=== PATIENT | female | born 2000 | race Caucasian/White ===

== ENCOUNTER 2024-09-17 15:50 | Emergency (ER) | payer MEDICAID, SELFPAY ==
[2024-09-17 16:23] VITALS: BP 130/70; PULSE 100; RESP 18; TEMP 37.1; O2SAT 99; BMI 33.3
--- NOTE | 2024-09-17 16:24 | XR_ITS ---
Examination: Complete OB ultrasound greater than 14 weeks Date and time of exam: September 17, 2024 1638 hours INDICATIONS: Abdominal cramping today Findings: Viable intrauterine single fetus with single amniotic sac presentation breech Cardiac motion 133 BPM Placenta anterior grade 1 Umbilical cord insertion seen Amniotic fluid appears adequate Cervix 4.7 cm Right ovary 5.5 cm arterial flow Left ovary 3.2 cm arterial flow 4.5 cm right ovarian cyst. Composite estimated gestational age based on BPD, head circumference, abdominal circumference, femur length is 18 weeks 3 days Estimated weight 231.5 g. Survey of intracranial anatomy, spinal anatomy, abdominal anatomy, four-chamber heart performed with no abnormalities identified. Impression: Viable intrauterine gestation in breech presentation.
--- NOTE | 2024-09-17 16:41 | PD.EDRME ---
Rapid Medical Screening Exam RME Arrival date/time: 09/17/24 15:50 24-year-old female with no known medical history presents to the emergency room with a chief complaint of abdominal cramping. Patient states she is currently 20 weeks and due to her insurance has had difficulty establishing [employer]IE[employer]PR[employer] ARCHIT[employer] care. Patient denies any vaginal bleeding or dysuria. I have greeted and performed a focused initial assessment of this patient. A comprehensive ED assessment and evaluation of the patient, analysis of all test results, and completion of the medical decision making process will be conducted by additional ED providers. Chief Complaint: OB/Uterine Contractions Time Seen by Provider: 09/17/24 16:16 Vital signs: Vital Signs Temperature 98.7 F 09/17/24 16:23 Pulse Rate 100 09/17/24 16:23 Respiratory Rate 18 09/17/24 16:23 Blood Pressure 130/70 09/17/24 16:23 Pulse Oximetry (%) 99 09/17/24 16:23 Oxygen Delivery Method Room Air 09/17/24 16:23 Vital signs reviewed by provider: Yes
[2024-09-17 17:36] LABS: Collection Type, Urine Clean Catch; RBC,Urine 0 /hpf (0-3)
[2024-09-17 17:38] LABS: Basophils % (Auto) 0 % (0-2.5); Eosinophils % (Auto) 1 % (0-10); Hematocrit 35.3 % (36.0-46.0); Hemoglobin 12.2 g/dL (12.0-16.0); Immature Granulocytes % (Auto) 0 % (0-0); Immature Granulocytes Auto 0.03 Thou/mm3 (0.00-0.00); Lymphocytes # (Auto) 1.9 Thou/mm3 (1.0-4.8); Lymphocytes % (Auto) 26 % (10-50); Mean Corpuscular HGB Conc 34.6 g/dl (31.0-37.0); Mean Corpuscular Hemoglobin 28.8 pg (25.0-35.0); Mean Corpuscular Volume 83 fL (80-100); Monocytes # (Auto) 0.5 Thou/mm3 (0.0-0.8); Monocytes % (Auto) 7 % (0-12); Neutrophils % (Auto) 67 % (37-80); Nucleated Red Blood Cell % 0 /100 WBC (0); Platelet Count 267 Thou/mm3 (140-440); Red Blood Count 4.24 Miln/mm3 (4.00-5.20); White Blood Count 7.6 Thou/mm3 (3.6-11.0)
[2024-09-17 18:06] LABS: Alanine Aminotransferase 19 U/L (10-49); Albumin, Serum 4.4 gm/dL (3.5-5.0); Albumin/Globulin Ratio 1.6 (1.2-2.2); Alkaline Phosphatase 61 U/L (46-116); Anion Gap 9 (7-16); Aspartate Amino Transferase 19 U/L (0-34); BUN/Creatinine Ratio 8 Ratio (12-20); Bilirubin,Total 0.3 mg/dL (0.3-1.2); Blood Urea Nitrogen 5 mg/dL (9-23); Calcium 9.1 mg/dL (8.3-10.6); Calcium (Corrected) 9.1 mg/dL (8.5-10.1); Carbon Dioxide 22.2 mMol/L (20.0-31.0); Chloride 108 mMol/L (98-107); Creatinine (Component) 0.6 mg/dL (0.6-1.3); Estimated Creatinine Clearance 148.3 mL/min (>60); Globulin 2.7 gm/dL (2.3-3.5); Glucose 81 mg/dL (74-106); Osmolality,Calculated 273 (275-295); Potassium 3.5 mMol/L (3.4-5.1); Sodium 139 mMol/L (136-145); Total Protein 7.1 gm/dL (5.7-8.2); eGFR > 60 See Note
[2024-09-17 18:16] LABS: Bacteria,Urine 2+; Bilirubin,Urine Negative (Negative); Blood,Urine Negative (Negative); Clarity,Urine Turbid (Clear/Hazy); Color,Urine Lt-Yellow (Lt Yel-Yel); Glucose, Urine Negative (Negative); Ketones,Urine Negative (Negative); Leukocyte Esterase,Urine Positive (Negative); Nitrite,Urine Negative (Negative); Protein,Urine Negative (Neg - Trace); Specific Gravity,Urine 1.012 (1.001-1.035); Squamous Epithelial Cell,Urine 6 /hpf (0-5); Urobilinogen,Urine Negative mg/dL (0.0-1.0); WBC,Urine 14 /hpf (0-5)
[2024-09-17 18:44] LABS: Beta HCG,Quantitative 75096 mIU/mL (<5.0)
--- NOTE | 2024-09-17 19:47 | EDNOTE_ITS ---
ED OB Contraction Preg RMI/HPI General Chief complaint: OB/Uterine Contractions Stated complaint: NEEDS ULTRASOUND TO SEE WHAT'S GOING ON ; 20 WKS Time Seen by Provider: 09/17/24 16:16 Arrival date/time: 09/17/24 15:50 24-year-old female with no known medical history presents to the emergency room with a chief complaint of abdominal cramping. Patient states she is currently 20 weeks and due to her insurance has had difficulty establishing [employer]CR[employer] care. Patient denies any vaginal bleeding or dysuria. Limitations: no limitations RME / HPI RME / HPI Narrative: 09/17/24 15:50 24-year-old female with no known medical history presents to the emergency room with a chief complaint of abdominal cramping. Patient states she is currently 20 weeks and due to her insurance has had difficulty establishing [employer] TR[employer]CR[employer] care. Patient denies any vaginal bleeding or dysuria. I have greeted and performed a focused initial assessment of this patient. A comprehensive ED assessment and evaluation of the patient, analysis of all test results, and completion of the medical decision making process will be conducted by additional ED providers. Related Data Previous Rx's ?Medication ?Instructions ?Recorded cephalexin 500 mg capsule 500 mg PO BID 5 days #10 cap s 09/17/24 Allergies Allergy/AdvReac Type Severity Reaction Status Date / Time Penicillins Allergy Vomiting Verified 09/17/24 15:53 Review of Systems Review of Systems Systems Reviewed: All systems reviewed, normal except as documented Constitutional Constitutional: Reports system reviewed and no additional complaints, except as documented, Denies fever(s) and Denies headache(s) Eyes Eyes: Reports system reviewed and no additional complaints, except as documented and Denies blurry vision ENT Ears, Nose, Mouth, and Throat: Reports system reviewed and no additional complaints, except as documented, Denies headache(s), Denies nasal congestion and Denies nasal discharge Cardiovascular Cardiovascular: Reports system reviewed and no additional complaints, except as documented, Denies chest pain and Denies dyspnea Respiratory Respiratory: Reports system reviewed and no additional complaints, except as documented, Denies chest congestion, Denies cough and Denies dyspnea Gastrointestinal Gastrointestinal: Reports system reviewed and no additional complaints, except as documented and Denies abdominal pain Genitourinary Genitourinary: Reports system reviewed and no additional complaints, except as documented and Reports pelvic pain Integumentary/Breasts Skin/Breast: Reports system reviewed and no additional complaints, except as documented and Denies rash Neurologic Neurologic: Reports system reviewed and no additional complaints, except as documented, Reports as per HPI and Denies headache(s) Past Medical History Social History SMOKING STATUS: Never smoker ED Exam General Limitations: Present no limitations General appearance: Present alert and in no apparent distress Head Head exam: Present atraumatic Eye Eye exam: Present normal appearance, PERRL and EOMI ENT ENT exam: Present normal exam, normal oropharynx and mucous membranes moist Neck Neck exam: Present normal inspection, full ROM and trachea midline Chest Chest inspection: Present normal inspection and symmetric chest wall rise Respiratory Respiratory exam: Present normal lung sounds bilaterally Cardiovascular Cardiovascular exam: Present regular rate, normal rhythm and normal heart sounds Abdominal Exam Abdominal exam: Present soft and normal bowel sounds Extremities Exam Extremities exam: Present normal inspection and full ROM Back Exam Back exam: Present normal inspection and full ROM Neurological Exam Neurological exam: Present alert, oriented X3 and CN II-XII intact Psychiatric Psychiatric exam: Present normal affect and normal mood Skin Skin exam: Present warm, dry, intact and normal color Course Quality Measures none Orders Category Date Time Status US OB >= 14 weeks Fetus Stat Exams 09/17/24 16:24 Completed ABO/RH Type Stat Lab 09/17/24 17:14 Completed Beta HCG,Quantitative Stat Lab 09/17/24 17:14 Completed CBC Stat Lab 09/17/24 17:14 Completed CMP [Comprehensive Metabolic Panel] Stat Lab 09/17/24 17:14 Completed UA [Urinalysis] Stat Lab 09/17/24 17:27 Completed Vital Signs Vital signs: Vital Signs Temperature 98.7 F 09/17/24 16:23 Pulse Rate 100 09/17/24 16:23 Respiratory Rate 18 09/17/24 16:23 Blood Pressure 130/70 09/17/24 16:23 Pulse Oximetry (%) 99 09/17/24 16:23 Oxygen Delivery Method Room Air 09/17/24 16:23 O2 saturation 99% room air wnl OB/Uterine Contractions MDM Narrative MDM Narrative:: 24-year-old female with no known medical history presents to the emergency room with a chief complaint of abdominal cramping. Patient states she is currently 20 weeks and due to her insurance has had difficulty establishing [employer] care. Patient denies any vaginal bleeding or dysuria. On exam patient with a provisional appear toxic no acute distress Reviewed the patient's lab work and imaging no acute emergent findings noted Consultation: I spoke with Dr. Soler and got her an appointment to follow-up with him on Saturday Patient reports no bleeding no pain. Patient reports that she has been stressed that she is unable to establish care with [employer]CT[employer] TRANSCRIBER as she suffers from anxiety Patient data External records reviewed:: [facility] previous records Clinical information provided by:: patient Social determinants that could affect healthcare access:: none Patient has the following chronic illnesses:: Anxiety How is presenting disease/condition affected by chronic disease/condition?: exacerbated by Evaluation data The following diagnostics were reviewed and interpreted by me:: lab results and radiology exam(s) Lab and/or radiology exams considered but not ordered:: Labs radiology obtained Interpretation Summary: Reviewed by me Medications / Prescriptions Medications or Prescriptions considered but not ordered:: Given no Medication administrations:: Given no meds Consultations Consultation(s) initiated? (list below): Yes Consultation #1 (Physician, Specialty, Details): Dr. Soler Diagnosis OB Contractions Differential Diagnosis: other (missed , threatened ) Most likely diagnosis given after review of the tests above:: Normal , anxiety, mild UTI Admission Indicated Admission indicated?: not indicated Explain why admission is indicated or not indicated:: No criteria Admission Request Was there a request for admission?: No Disposition Plan Disposition Plan: Discharge Discharge Attestation Discharge Attestation: The patient and all family members were given an opportunity to ask questions and understood the discharge instructions. Discharge instructions specifically effects, indications for sooner follow up or return to the emergency department, and the expected course of current diagnosis. Patient condition: Stable Discharge Plan Plan Patient Disposition: HOME (Self Care) Discharge Disposition comment: Stable Prescriptions/Referrals Prescriptions/Med Rec: New cephalexin 500 mg capsule 500 mg PO BID 5 Days Qty: 10 0RF Referrals: Dez Soler MD [Physician] - 09/21/24 9:00 am No Primary/Family,Physician [Primary Care Provider] - In 1 week Problem List Clinical Impression: Early stage of , UTI (urinary tract infection) Patient/Caregiver Discharge Instructions Education Materials: Kick Counts Additional Instructions: Please follow-up 9 AM on Saturday morning with Dr. Soler inform the front office staff that you were seen in the ER and he states he will see you as a new patient Print Language: Uzbek Stand Alone Forms: Asiya Award Info., Patient Portal Info Letter PA/POWER SAW MECHANIC Supervising Physician PA/POWER SAW MECHANIC Supervising Physician: dr izaguirre
== END 2024-09-17 20:14 | disposition home or self-care (01) ==
PROVIDERS: Nurse Practitioner Family; Emergency Provider Family Medicine
DX: O23.42 Unspecified infection of urinary tract in pregnancy, second trimester (principal); N39.0 Urinary tract infection, site not specified; O26.892 Other specified pregnancy related conditions, second trimester; R10.2 Pelvic and perineal pain; Z3A.18 18 weeks gestation of pregnancy
CPT/HCPCS: 36415; 76805; 80053; 81001; 84702; 85025; 86900; 86901; 99284

== ENCOUNTER 2024-10-13 13:18 | Outpatient (AMB) | payer MEDICAID, SELFPAY ==
[2024-10-13 13:44] VITALS: BP 135/91; PULSE 120; RESP 22; TEMP 36.9; O2SAT 99; BMI 38.4
--- NOTE | 2024-10-13 13:44 | OBCLNT_ITS ---
Vital Signs 10/13/24 13:44 Height 1.6 m Height Method Stated Weight 98.43 kg Weight Measurement Method Standing Scale BMI 38.4 BP 135/91 H Blood Pressure Source Automatic Cuff Blood Pressure Location Right Upper Arm Position Sitting Respiration 22 H Pulse 120 H Pulse Source Monitor Temp 98.5 F Temp Source Oral Pulse Oximetry (%) 99 Oxygen Delivery Method Room Air Allergies/Home Meds Allergies & Medications Allergies Penicillins Allergy (Verified 10/13/24 13:46) Vomiting Medication Reconciliation No Known Home Medications 10/13/24 [History Confirmed 10/13/24] Intake Visit Data Collection New Patient or Established: Established Patient (seen at [facility] within 3 years) Reason for Visit:: INITIAL CARE Seen by Clinical Staff ONLY (RN/MA): No Fine Grader Required: No Do You Feel Safe at Home: Yes Authorities Contacted: N/A PCP or OBGYN visit in last 3 months: Yes Hx Now: Yes Are you currently on any form of Control: No Pain Present Currently: No Pain Scale Used: Yen-De La Torre/Numerical Pain scale:: 0 Smoking Status Smoking Status: Never smoker Questionnaires Covid-19 Vaccine Questionnaire Has patient been vacinated for Covid-19 Have you been vacinated for Covid-19: Yes PHQ-9 PHQ-2 Over the last 2 weeks, how often have you been bothered by any of the following problems? 1. Little interest or pleasure in doing things: not at all 2. Feeling down, depressed, or hopeless: not at all Total score: 0 PHQ-9 3. Trouble falling or staying asleep, or sleeping too much: Not at all 4. Feeling tired or having little energy: Not at all 5. Poor appetite or overeating: Not at all 6. Feeling bad about yourself - or that you are a failure or have let yourself or your family down: Not at all 7. Trouble concentrating on things, such as reading the newspaper or watching t elevision: Not at all 8. Moving or speaking so slowly that other people could have noticed? - Or the opposite - being so fidgety or restless that you have been moving around a lot more than usual: not at all 9. Thoughts that you would be better off or of hurting yourself in some way: Not at all Total score: 0 Source: Developed by Drs. Devin Jonas, Kathryn Hatfield, Richard Rivera and colleagues, with an educational timoteo from [employer]. Depression screen completed yes Social History Living Situation History Marital Status: Lives With: Family Housing: House Tobacco History Smoking Status: Never smoker Second Hand Smoke Exposure: No Alcohol History Alcohol Intake: Never Domestic Abuse History Do You Feel Safe at Home: Yes OB Initial Visit OB Flowsheet OB Flowsheet Initial Weight: Not Recorded Date -?-?-?-?-?-?-?-?-?-?-?-?- EGA Weight BP Alb Glu CTX Pres Fundal ht FHR Mov Dilation Station Effacement Hx Notes Visit Note 10/13/24 -?-?-?-?-?-?-?-?-?-?-?-?- 22w 1d 98.43 kg 135/91 absent unknown 22 145 active 24-year-old 1 para 0 with unknown dates. Patient had an ultrasound on September 14 and the ABHIJIT it stated she was 18 weeks and 3 days. This gave her EDC of February 17, 2025. Patient complains of increased nausea and vomiting that she says is improving. But she is tearful because she is not feeling the baby move and she is worried about that. Denies social habits. And patient denies any surgeries. Patient has a history of anxiety. Reports an alert allergy to penicillin. Patient denies leaking fluid or bleeding. OB panel and NIPT and carrier screens ordered today. I will schedule ultrasound with maternal- medicine for anatomy scan. I reassured patient and discussed dates. Discussed comfort measures for nausea and vomiting. Patient is to continue to take her vitamins. And we discussed signs symptoms of labor. And patient will return in 3 weeks for OB check Menstrual History Menstrual reliability: definite Flow: normal Menstrual regularity: regular Monthly: Yes Age at menarche: 10 On control pills at conception: No Associated symptoms (LMP): Reports nausea, vomiting, fatigue, breast tenderness and bloating OB History : 1 # of Living Children: 0 Infection History & Risk Evaluation History of STDs: none Genetic Screening & History Genetic Screening/Teratology Counseling - Includes patient, baby's father, or anyone in either family with: 1. Patient's age 35 years or older as of estimated date of delivery: No 2. Thalassemia (Japanese, Martiniquais, Mediterranean, or Background); MCV less than 80: No 3. Neural Tube Defect (Meningomyelocele, Spina Bifida, or Anencephaly): No 4. Congenital Heart Defect: No 5. Down Syndrome: No 6. Manuel-Sachs (Ashkenazi Congregational, Cajun, Australian Citizen Of The [place]): No 7. Dinh Disease (Ashkenazi Congregational): No 8. Familial Dysautonomia (Ashkenazi Congregational): No 9. Sickle Cell Disease or Trait (): No 10. Hemophilia or other blood disorders: No 11. Muscular Dystrophy: No 12. Cystic Fibrosis: No 13. Nome's Chorea: No 14. Mental Retardation/Autism: No 15. Other inherited genetic or chromosomal disorder: No 16. Maternal Metabolic Disorder (EG,TYPE 1 Diabetes, PKU): No 17. Patient or baby's father had a child with defects not listed above: No 18. Recurrent loss or a stillbirth: No 19. Medications (including supplements, vitamins, herbs or otc drugs)/illicit/recreational drugs/alcohol since last menstrual period: No 20. Any other: No Infection History 1. Live with someone with TB or exposed to TB: No 2. Rash or viral illness since last menstrual period: No 3. Hepatitis B,C: No Other (see comments) Source: [employer] Review of Systems Review of Systems Systems Reviewed: All systems reviewed, normal except as documented Constitutional Constitutional: Reports fatigue Gastrointestinal Gastrointestinal: Reports bloating, Reports nausea and Reports vomiting Endocrine Endocrine: Reports fatigue Exam General Limitations: no limitations General Appearance: alert, in no apparent distress, comfortable, cooperative, healthy appearing, well developed and well groomed Head Head exam: atraumatic, normocephalic and normal inspection Chest Chest inspection: Present normal inspection and symmetric chest wall rise Resp Respiratory exam: Present normal lung sounds bilaterally Card Cardiovascular exam: Present regular rate, normal rhythm and normal heart sounds Abdominal Abdominal exam: Present soft and normal bowel sounds Psych Psychiatric exam: Present normal affect and normal mood Office Procedures OB Clinic LOC & Office Proc's Nursing/Assessment Patient Status: Established Patient OB Clinic Nursing Assessment: Medication Reconciliation, Update PMH in EMR and Vital Signs OB Clinic Coordination of Care: Complex Care and Chronic Disease 1-5, Consent,records obtained, informed consent, Education Simp Pt/Fam, Lab and Imaging orders, Results/Orders obtained and Staff clarify orders Special Needs: Heart tones Established Patient Charge Established Patient Point Assignment: 135 Established Patient Point Charge: EP Level 4 (120-155) Assessment & Plan Diagnosis / Problem List (1) Encounter for supervision of other normal , second trimester: Status: Acute Plan NIPT and carrier screens today. Schedule ultrasound appointment with maternal- medicine. I discussed dates and ultrasound with patient. I discussed normal parameters for the baby that is 22 weeks. Discussed diet and weight gain. Patient to continue vitamins comfort measures for nausea and return in 4 weeks OB Additional Plan Follow Up: 4 Weeks (obc)
== END 2024-10-13 14:31 | disposition home or self-care (01) ==
LOC: HODSOBC 13:18
PROVIDERS: Supervising Provider Advanced Practice Midwife; Visit Provider Advanced Practice Midwife
DX: Z34.02 Encounter for supervision of normal first pregnancy, second trimester (principal); Z3A.22 22 weeks gestation of pregnancy; Z88.0 Allergy status to penicillin
CPT/HCPCS: 99214; G0463

== ENCOUNTER 2024-11-17 13:13 | Outpatient (AMB) | payer MEDICAID, SELFPAY ==
[2024-11-17 13:20] VITALS: BP 139/96; PULSE 105; RESP 17; TEMP 36.7; O2SAT 98; BMI 39.3
--- NOTE | 2024-11-17 13:20 | OBCLNT_ITS ---
Vital Signs 11/17/24 13:20 Height 1.6 m Height Method Measured Weight 100.698 kg Weight Measurement Method Standing Scale BMI 39.3 BP 139/96 H Blood Pressure Source Automatic Cuff Blood Pressure Location Right Upper Arm Position Sitting Respiration 17 Pulse 105 H Pulse Source Monitor Temp 98.0 F Temp Source Temporal Artery Scan Pulse Oximetry (%) 98 Oxygen Delivery Method Room Air Allergies/Home Meds Allergies & Medications Allergies Penicillins Allergy (Verified 11/17/24 13:21) Vomiting Medication Reconciliation No Known Home Medications 10/13/24 [History Confirmed 11/17/24] Intake Visit Data Collection New Patient or Established: Established Patient (seen at [facility] within 3 years) Reason for Visit:: OBC Consent obtained for Telemed Visit: No Seen by Clinical Staff ONLY (RN/MA): No Architecture Faculty Member Required: No Do You Feel Safe at Home: Yes Authorities Contacted: N/A PCP or OBGYN visit in last 3 months: Yes Date of Last PCP or OBGYN visit: 10/13/24 Hx Now: Yes Are you currently on any form of Control: No Pain Present Currently: No Pain Scale Used: Yen-De La Torre/Numerical Pain scale:: 0 Smoking Status Smoking Status: Never smoker Questionnaires Covid-19 Vaccine Questionnaire Has patient been vacinated for Covid-19 Have you been vacinated for Covid-19: No PHQ-9 PHQ-2 Over the last 2 weeks, how often have you been bothered by any of the following problems? 1. Little interest or pleasure in doing things: not at all PHQ-9 8. Moving or speaking so slowly that other people could have noticed? - Or the opposite - being so fidgety or restless that you have been moving around a lot more than usual: not at all Source: Developed by Drs. Devin Jonas, Kathryn Hatfield, Richard Rivera and colleagues, with an educational timoteo from [employer]. Social History Living Situation History Lives With: Family Housing: House Tobacco History Smoking Status: Never smoker Second Hand Smoke Exposure: No Alcohol History Alcohol Intake: Never Domestic Abuse History Do You Feel Safe at Home: Yes Care OB Visit Log OB Flowsheet Initial Weight: Not Recorded Date -?-?-?-?-?-?-?-?-?-?-?-?- EGA Weight BP Alb Glu CTX Pres Fundal ht FHR Mov Dilation Station Effacement Hx Notes Visit Note 10/13/24 -?-?-?-?-?-?-?-?-?-?-?-?- 22w 1d 98.43 kg 135/91 absent unknown 22 145 active 24-year-old 1 para 0 with unknown dates. Patient had an ultrasound on September 14 and the ABHIJIT it stated she was 18 weeks and 3 days. This gave her EDC of February 17, 2025. Patient complains of increased nausea and vomiting that she says is improving. But she is tearful because she is not feeling the baby move and she is worried about that. Denies social habits. And patient denies any surgeries. Patient has a history of anxiety. Reports an alert allergy to penicillin. Patient denies leaking fluid or bleeding. OB panel and NIPT and carrier screens ordered today. I will schedule ultrasound with maternal- medicine for anatomy scan. I reassured patient and discussed dates. Discussed comfort measures for nausea and vomiting. Patient is to continue to take her vitamins. And we discussed signs symptoms of labor. And patient will return in 3 weeks for OB check 11/17/24 -?-?-?-?-?-?-?-?-?-?-?-?- 27w 1d 100.698 kg 139/96 absent unknown 26 145 active No oB complaints, no leaking or bleeding, labs were not done. MFM pending redraw OB panel, nipt/carrier and 3rd tri lab, RHOGAM NV if needed, MFM scheduled, discuss ptl precaution, hydrate. continue PNV, PTL precaution. rtc 4 week ABHIJIT Calculator Estimated Delivery Date Method Current WG Current Estimate 02/15/25 Ultrasound #1 27w 1d Other Estimates 02/04/25 LMP (Uncertain) 28w 5d Notes Visit Date: 10/13/24 Last Updated by: Cherie Conti CNM 24 yo . sono: 09/17/24: 18w3. EDC 02/17/25 Office Procedures OB Clinic LOC & Office Proc's Nursing/Assessment Patient Status: Established Patient OB Clinic Nursing Assessment: Medication Reconciliation, Update PMH in EMR and Vital Signs OB Clinic Coordination of Care: Complex Care and Chronic Disease 1-5, Consent,records obtained, informed consent, Education Simp Pt/Fam and 4+ Authorizations needed Special Needs: Heart tones Miscellaneous Interventions: Blood/Urine Collection Established Patient Charge Established Patient Point Assignment: 160 Established Patient Point Charge: EP Level 5 (160-above) Assessment & Plan Diagnosis / Problem List (1) High risk case management patient in second trimester: Status: Acute Plan redraw OB panel/1 hr gtt, A1c, NIPT and carrier screen, f/u with MFM for sono appointment. discuss PTL precaution. Rhogam NV if RH-. rtc 3 week Additional Plan Follow Up: 3 Weeks (obc)
== END 2024-11-17 14:03 | disposition home or self-care (01) ==
LOC: HODSOBC 13:13
PROVIDERS: Supervising Provider Advanced Practice Midwife; Visit Provider Advanced Practice Midwife
DX: Z34.02 Encounter for supervision of normal first pregnancy, second trimester (principal); Z3A.27 27 weeks gestation of pregnancy; Z88.0 Allergy status to penicillin
CPT/HCPCS: 99215; G0463

== ENCOUNTER 2024-12-16 15:07 | Outpatient (AMB) | payer MEDICAID, SELFPAY ==
--- NOTE | 2024-12-16 15:12 | AMB.OBVISIT ---
Allergies/Home Meds Allergies & Medications Allergies Penicillins Allergy (Verified 12/16/24 15:12) Vomiting Medication Reconciliation azithromycin 500 mg tablet 1,000 mg (2 x 500 mg) PO QDAY STI 1 day #2 tabs 12/16/24 [Rx] erythromycin 500 mg tablet 500 mg PO QID STI 7 days #28 tabs 12/16/24 [Rx] ferrous sulfate 325 mg (65 mg iron) tablet 325 mg PO BID #60 tabs 12/16/24 [Rx] Intake Visit Data Collection New Patient or Established: Established Patient (seen at [facility] within 3 years) Reason for Visit:: OBC/ LAB RESULTS TELE MED Seen by Clinical Staff ONLY (RN/MA): No Lab Tech Required: No Do You Feel Safe at Home: Yes Authorities Contacted: N/A PCP or OBGYN visit in last 3 months: Yes Date of Last PCP or OBGYN visit: 10/13/24 Hx Now: Yes Are you currently on any form of Control: No Pain Present Currently: No Pain Scale Used: Yen-De La Torre/Numerical Pain scale:: 0 Smoking Status Smoking Status: Never smoker For Telemed visit only Telemed Video/Phone Visit: Yes Verbal consent obtained for Telemed visit?: Yes Verbal Consent witness name: EDUAR AVENDANO Telemed Video/Phone visit w/Clinical Staff: 11-20 min Questionnaires Covid-19 Vaccine Questionnaire Has patient been vacinated for Covid-19 Have you been vacinated for Covid-19: No PHQ-9 PHQ-2 Over the last 2 weeks, how often have you been bothered by any of the following problems? 1. Little interest or pleasure in doing things: not at all 2. Feeling down, depressed, or hopeless: not at all Total score: 0 PHQ-9 3. Trouble falling or staying asleep, or sleeping too much: Not at all 4. Feeling tired or having little energy: Not at all 5. Poor appetite or overeating: Not at all 6. Feeling bad about yourself - or that you are a failure or have let yourself or your family down: Not at all 7. Trouble concentrating on things, such as reading the newspaper or watching television: Not at all 8. Moving or speaking so slowly that other people could have noticed? - Or the opposite - being so fidgety or restless that you have been moving around a lot more than usual: not at all 9. Thoughts that you would be better off or of hurting yourself in some way: Not at all Total score: 0 If you checked off any problems, how difficult have these problems made it for you to do your work, take care of things at home, or get along with other people?: not difficult at all Source: Developed by Drs. Devin Jonas, Kathryn Hatfield, Richard Rivera and colleagues, with an educational timoteo from [employer]. Depression screen completed yes Social History Living Situation History Marital Status: Life Partner Lives With: Family Housing: House Tobacco History Smoking Status: Never smoker Second Hand Smoke Exposure: No Alcohol History Alcohol Intake: Never Domestic Abuse History Do You Feel Safe at Home: Yes Care OB Visit Log OB Flowsheet Initial Weight: Not Recorded Date <del>?</del> EGA Weight BP Alb Glu CTX Pres Fundal ht FHR Mov Dilation Station Effacement Hx Notes Visit Note 10/13/24 <del>?</del> 22w 1d 98.43 kg 135/91 absent unknown 22 145 active 24-year-old 1 para 0 with unknown dates. Patient had an ultrasound on September 14 and the ABHIJIT it stated she was 18 weeks and 3 days. This gave her EDC of February 17, 2025. Patient complains of increased nausea and vomiting that she says is improving. But she is tearful because she is not feeling the baby move and she is worried about that. Denies social habits. And patient denies any surgeries. Patient has a history of anxiety. Reports an alert allergy to penicillin. Patient denies leaking fluid or bleeding. OB panel and NIPT and carrier screens ordered today. I will schedule ultrasound with maternal- medicine for anatomy scan. I reassured patient and discussed dates. Discussed comfort measures for nausea and vomiting. Patient is to continue to take her vitamins. And we discussed signs symptoms of labor. And patient will return in 3 weeks for OB check 11/17/24 <del>?</del> 27w 1d 100.698 kg 139/96 absent unknown 26 145 active No oB complaints, no leaking or bleeding, labs were not done. MFM pending redraw OB panel, nipt/carrier and 3rd tri lab, RHOGAM NV if needed, MFM scheduled, discuss ptl precaution, hydrate. continue PNV, PTL precaution. rtc 4 week 12/16/24 <del>?</del> 31w 2d active I called patient to discuss positive chlamydia results. Patient is tearful during appointment. Reports anxiety is elevated. Patient thinks her anxiety is elevated because father the baby is not bringing her to her visit today. Discussed positive chlamydia results with patient. Discussed safe sex practices. And I discussed transmission with. Patient. I gave the partner treatment pack of azithromycin 1 g to be taken today. Patient is allergic to penicillins so I gave her erythromycin 500 mg p.o. 4 times daily x 7 days per CDC guidelines. No sex for at least 3 weeks. And then I advised to use condoms. I discussed the patient is Rh- and advised patient to come on Saturday for her RhoGAM. And she was given her NIPT and gender results. Discussed labor precautions and increase fluids. Discussed positive chlamydia results with patient. Discussed safe sex practices. And I discussed transmission with. Patient. I gave the partner treatment pack of azithromycin 1 g to be taken today. Patient is allergic to penicillins so I gave her erythromycin 500 mg p.o. 4 times daily x 7 days per CDC guidelines. No sex for at least 3 weeks. And then I advised to use condoms. I discussed the patient is Rh- and advised patient to come on Saturday for her RhoGAM. And she was given her NIPT and gender results. Discussed labor precautions and increase fluids.. called patient to come draw 3 hr gtt ABHIJIT Calculator Estimated Delivery Date Method Current WG Current Estimate 02/15/25 Ultrasound #1 31w 2d Other Estimates 02/04/25 LMP (Uncertain) 32w 6d Notes Visit Date: 12/16/24 Last Updated by: Cherie Conti CNM 24yo . O-,ABS-. Patient Needs Rhogam at 28 week. rub NI, rpr;;nr, GC-/CT+. HBSAG-,HIV-,HC- Visit Date: 10/13/24 Last Updated by: Cherie Conti CNM 24 yo . sono: 09/17/24: 18w3. EDC 02/17/25 Office Procedures OB Clinic LOC & Office Proc's Nursing/Assessment Patient Status: Established Patient OB Clinic Nursing Assessment: Medication Reconciliation, Update PMH in EMR and Vital Signs OB Clinic Coordination of Care: Complex Care and Chronic Disease 1-5, Consent,records obtained, informed consent, Education Simp Pt/Fam, Results/Orders obtained and Staff clarify orders Established Patient Charge Established Patient Point Assignment: 90 Telehealth If patient is seen using Teleconference methods, complete New/Est section, but DO NOT kassy points only kassy the correct Telemed visit type Telemed Phone/Video with patient at home & Dr,PA,WOOD LATHE OPERATOR: Yes Assessment & Plan Diagnosis / Problem List (1) Encounter for supervision of high risk in third trimester, antepartum: Status: Acute (2) Chlamydia contact: Status: Acute Plan Called patient to do virtual appointment for lab results. Discussed positive chlamydia with patient. I ordered a partner pack azithromycin 1 g for patient's partner. And the patient is allergic to penicillin so I ordered erythromycin 500 mg p.o. 4 times daily x 7 days per CDC guidelines. I discussed chlamydial transmission. I advised patient to not have sex until her next appointment. And then after that condoms for least 2 weeks. Discussed safe sex with patient as well I also had patient to come in in 2 days for RhoGAM because she is Rh-. Discussed labor precautions with patient. Increase fluids. And return in 2 weeks for OB check. patient will P/U lab slip for 3 hr gtt, Iron bid Additional Plan Follow Up: 2 Weeks (obc, MARIAN 4 week)
== END 2024-12-16 15:34 | disposition home or self-care (01) ==
LOC: HODSOBC 15:07
PROVIDERS: PCP Advanced Practice Midwife; Referring Provider Advanced Practice Midwife; Supervising Provider Advanced Practice Midwife; Visit Provider Advanced Practice Midwife
DX: O09.893 Supervision of other high risk pregnancies, third trimester (principal); O98.313 Other infections with a predominantly sexual mode of transmission complicating pregnancy, third trimester; A56.8 Sexually transmitted chlamydial infection of other sites; Z3A.31 31 weeks gestation of pregnancy; Z88.0 Allergy status to penicillin
CPT/HCPCS: 99212; G0463

== ENCOUNTER 2024-12-28 13:42 | Outpatient (AMB) | payer MEDICAID, SELFPAY ==
--- NOTE | 2024-12-28 13:47 | AMB.OBVISIT ---
Vital Signs 12/28/24 13:54 Height 1.6 m Height Method Stated Weight 106.254 kg Weight Measurement Method Standing Scale BMI 41.5 BP 136/86 H Blood Pressure Source Automatic Cuff Blood Pressure Location Left Upper Arm Position Sitting Respiration 18 Pulse 91 Pulse Source Monitor Temp 97.4 F Temp Source Oral Pulse Oximetry (%) 98 Oxygen Delivery Method Room Air Allergies/Home Meds Allergies & Medications Allergies Penicillins Allergy (Verified 12/28/24 13:55) Vomiting Medication Reconciliation ferrous sulfate 325 mg (65 mg iron) tablet 325 mg PO BID #60 tabs 12/16/24 [Rx Confirmed 12/28/24] erythromycin 500 mg tablet 500 mg PO TID 7 days #21 tabs 12/28/24 [Rx] Intake Visit Data Collection New Patient or Established: Established Patient (seen at [facility] within 3 years) Reason for Visit:: CARE Seen by Clinical Staff ONLY (RN/MA): No Maintenance Engineer Required: No Do You Feel Safe at Home: Yes Authorities Contacted: N/A PCP or OBGYN visit in last 3 months: Yes Hx Now: Yes Are you currently on any form of Control: No Pain Present Currently: No Pain Scale Used: Yen-De La Torre/Numerical Pain scale:: 0 Smoking Status Smoking Status: Never smoker Questionnaires Covid-19 Vaccine Questionnaire Has patient been vacinated for Covid-19 Have you been vacinated for Covid-19: Yes PHQ-9 PHQ-2 Over the last 2 weeks, how often have you been bothered by any of the following problems? 1. Little interest or pleasure in doing things: not at all 2. Feeling down, depressed, or hopeless: not at all Total score: 0 PHQ-9 3. Trouble falling or staying asleep, or sleeping too much: Not at all 4. Feeling tired or having little energy: Not at all 5. Poor appetite or overeating: Not at all 6. Feeling bad about yourself - or that you are a failure or have let yourself or your family down: Not at all 7. Trouble concentrating on things, such as reading the newspaper or watching television: Not at all 8. Moving or speaking so slowly that other people could have noticed? - Or the opposite - being so fidgety or restless that you have been moving around a lot more than usual: not at all 9. Thoughts that you would be better off or of hurting yourself in some way: Not at all Total score: 0 Source: Developed by Drs. Devin Jonas, Kathryn Hatfield, Richard Rivera and colleagues, with an educational timoteo from [employer]. Depression screen completed yes Social History Living Situation History Lives With: Family Housing: House Tobacco History Smoking Status: Never smoker Second Hand Smoke Exposure: No Alcohol History Alcohol Intake: Never Domestic Abuse History Do You Feel Safe at Home: Yes Care OB Visit Log OB Flowsheet Initial Weight: Not Recorded Date <del>?</del> EGA Weight BP Alb Glu CTX Pres Fundal ht FHR Mov Dilation Station Effacement Hx Notes Visit Note 10/13/24 <del>?</del> 22w 1d 98.43 kg 135/91 absent unknown 22 145 active 24-year-old 1 para 0 with unknown dates. Patient had an ultrasound on September 14 and the ABHIJIT it stated she was 18 weeks and 3 days. This gave her EDC of February 17, 2025. Patient complains of increased nausea and vomiting that she says is improving. But she is tearful because she is not feeling the baby move and she is worried about that. Denies social habits. And patient denies any surgeries. Patient has a history of anxiety. Reports an alert allergy to penicillin. Patient denies leaking fluid or bleeding. OB panel and NIPT and carrier screens ordered today. I will schedule ultrasound with maternal- medicine for anatomy scan. I reassured patient and discussed dates. Discussed comfort measures for nausea and vomiting. Patient is to continue to take her vitamins. And we discussed signs symptoms of labor. And patient will return in 3 weeks for OB check 11/17/24 <del>?</del> 27w 1d 100.698 kg 139/96 absent unknown 26 145 active No oB complaints, no leaking or bleeding, labs were not done. M pending redraw OB panel, nipt/carrier and 3rd tri lab, RHOGAM NV if needed, M scheduled, discuss ptl precaution, hydrate. continue PNV, PTL precaution. rtc 4 week 12/16/24 <del>?</del> 31w 2d active I called patient to discuss positive chlamydia results. Patient is tearful during appointment. Reports anxiety is elevated. Patient thinks her anxiety is elevated because father the baby is not bringing her to her visit today. Discussed positive chlamydia results with patient. Discussed safe sex practices. And I discussed transmission with. Patient. I gave the partner treatment pack of azithromycin 1 g to be taken today. Patient is allergic to penicillins so I gave her erythromycin 500 mg p.o. 4 times daily x 7 days per CDC guidelines. No sex for at least 3 weeks. And then I advised to use condoms. I discussed the patient is Rh- and advised patient to come on Saturday for her RhoGAM. And she was given her NIPT and gender results. Discussed labor precautions and increase fluids. Discussed positive chlamydia results with patient. Discussed safe sex practices. And I discussed transmission with. Patient. I gave the partner treatment pack of azithromycin 1 g to be taken today. Patient is allergic to penicillins so I gave her erythromycin 500 mg p.o. 4 times daily x 7 days per CDC guidelines. No sex for at least 3 weeks. And then I advised to use condoms. I discussed the patient is Rh- and advised patient to come on Saturday for her RhoGAM. And she was given her NIPT and gender results. Discussed labor precautions and increase fluids.. called patient to come draw 3 hr gtt 12/28/24 <del>?</del> 33w 0d 106.254 kg 136/86 absent unknown 32 145 active Patient for OB I. Patient has been noncompliant with care. She has limited access to transportation. Patient is tearful. She states her boyfriend is in a mental hospital. Patient is living with his father. Patient has limited support. Patient reports that her family lives in [place]. Patient did state that she feels safe living where she is at. Patient declined referral to [facility] behavioral health. She states she has no way to get there. She also states that even though she has a history of depression and anxiety she has not taken medication in over 5 years. And she does not get counseling. Patient did not take her erythromycin for positive chlamydia. She states her boyfriend threw them away because the medicine would hurt the baby. Patient does state that she has not had sex since partner was treated. [facility] appointment 12/31 RhoGAM today. I advised patient to get her 3-hour GTT. I also talked with patient about seeing [facility] and [facility]. Patient has not motivated to get help she feels that she is doing well. She also is having transportation problems and difficulty even getting around town. Maternal- medicine appointment on the . Discussed kick count and labor precautions. RhoGAM today. I advised patient to get her 3-hour GTT. I also talked with patient about seeing [facility]. Patient has not motivated to get help she feels that she is doing well. She also is having transportation problems and difficulty even getting around town. Maternal- medicine appointment on the . Discussed kick count and labor precautions. refill eryhthromycin 500 BID x 7, no sex, discuss compliance,. Discussed safe sex. Discussed importance of taking all erythromycin 500 twice daily x 7 days. Test of cure in 4 weeks. RhoGAM today. I advised patient to get her 3-hour GTT. I also talked with patient about seeing behavioral health and [facility]. Patient has not motivated to get help she feels that she is doing well. She also is having transportation problems and difficulty even getting around town. Maternal- medicine appointment on the . Discussed kick count and labor precautions. refill eryhthromycin 500 TID x 7, no sex, discuss compliance,. Discussed safe sex. Discussed importance of taking all erythromycin 500 twice daily x 7 days. Test of cure in 4 weeks. ABHIJIT Calculator Estimated Delivery Date Method Current WG Current Estimate 02/15/25 Ultrasound #1 33w 0d Other Estimates 02/04/25 LMP (Uncertain) 34w 4d Notes Visit Date: 12/28/24 Last Updated by: Cherie Conti CNM 12/28: RHOGAM given today Visit Date: 12/16/24 Last Updated by: Cherie Conti CNM 24yo . O-,ABS-. Patient Needs Rhogam at 28 week. rub NI, rpr;;nr, GC-/CT+. HBSAG-,HIV-,HC- Visit Date: 10/13/24 Last Updated by: Cherie Conti CNM 24 yo . sono: 09/17/24: 18w3. EDC 02/17/25 Office Procedures OB Clinic LOC & Office Proc's Nursing/Assessment Patient Status: Established Patient OB Clinic Nursing Assessment: Medication Reconciliation, Update PMH in EMR and Vital Signs OB Clinic Coordination of Care: Complex Care and Chronic Disease 1-5, Consent,records obtained, informed consent, Education Simp Pt/Fam, 1 Ins Authorization, Lab and Imaging orders, Results/Orders obtained and Staff clarify orders Special Needs: Heart tones Established Patient Charge Established Patient Point Assignment: 150 Established Patient Point Charge: EP Level 4 (120-155) Office Meds Rhophylac 1,500 unit (300 mcg)/2 mL injection syringe Performing Provider: Cherie Conti CNM Performing Location: [facility] Administered by: Rosalva Martinez MA on 12/28/24 15:02 Dose Route Admin Location Dispensed Lot Number Expiration Date [facility] Strategic Planning Analyst 1,500 unit IM LT GLUTEUS 2 mL [id number] 12/02/26 59091-229-71 [facility] Assessment & Plan Diagnosis / Problem List (1) Encounter for supervision of high risk in third trimester, antepartum: Status: Acute (2) High risk case management patient in second trimester: Status: Acute (3) Chlamydia contact: Status: Acute Plan Reordered erythromycin 3 times daily x 7. Discussed compliance and effectiveness of taking the medication with patient. Suggested taking it with little bit of food. We advised patient no sex. Test of cure in 4 weeks. Patient was given a slip to do her 3-hour GTT again. RhoGAM today. Keep appointment with maternal- medicine on the . Discussed labor precautions and kick count. I offered behavioral [facility] appointment with patient she declined due to transportation issues. Increase fluids. Return in 2 weeks OB check Additional Plan Follow Up: 2 Weeks (obc)
[2024-12-28 13:54] VITALS: BP 136/86; PULSE 91; RESP 18; TEMP 36.3; O2SAT 98; BMI 41.5
== END 2024-12-28 14:28 | disposition home or self-care (01) ==
LOC: HODSOBC 13:42
PROVIDERS: PCP Advanced Practice Midwife; Referring Provider Advanced Practice Midwife; Supervising Provider Advanced Practice Midwife; Visit Provider Advanced Practice Midwife
DX: O09.893 Supervision of other high risk pregnancies, third trimester (principal); O26.893 Other specified pregnancy related conditions, third trimester; Z67.41 Type O blood, Rh negative; Z3A.33 33 weeks gestation of pregnancy; O98.313 Other infections with a predominantly sexual mode of transmission complicating pregnancy, third trimester; A56.8 Sexually transmitted chlamydial infection of other sites; O99.891 Other specified diseases and conditions complicating pregnancy; Z59.82 Transportation insecurity; Z88.0 Allergy status to penicillin; T36.3X6A Underdosing of macrolides, initial encounter; Z91.148 Patient's other noncompliance with medication regimen for other reason
CPT/HCPCS: 96372; 99214; J3490; G0463; J2791

== ENCOUNTER 2025-02-05 08:44 | Inpatient (IN) | payer MEDICAID, SELFPAY ==
[2025-02-05] VITALS (199 sets, daily range): BP systolic 128–210; BP diastolic 63–105; PULSE 75–118; RESP 18–99; TEMP 36.8–37.2; O2SAT 92–100; BMI 43.0; BMI 42.5
--- NOTE | 2025-02-05 09:19 | XR_ITS ---
Examination: Complete OB ultrasound greater than 14 weeks Date and time of exam: February 05, 2025, 10:40 AM INDICATIONS: Limited care Findings: Viable intrauterine single fetus with single amniotic sac presentation cephalic spine maternal left Cardiac motion 136 BPM Placenta anterior grade 2 Umbilical cord insertion 3 vessel seen Amniotic fluid index 0 Ovaries obscured by bowel gas. Composite estimated gestational age based on BPD, head circumference, abdominal circumference, femur length is 38 weeks 0 days Estimated weight 3420 g. Survey of intracranial anatomy, spinal anatomy, abdominal anatomy, four-chamber heart performed with no abnormalities identified. Impression: Viable intrauterine gestation cephalic presentation Amniotic fluid index 0 Estimated gestational age 38 weeks 0 days.
[2025-02-05] MEDS: hydrALAZINE INJ 20 MG/ML VIAL 5 MG IVP (09:27)
--- NOTE | 2025-02-05 09:38 | EKG_ITS ---
[facility] Test Date: 2025-02-05 Pat Name: DEEJAY DENNIS Department: Room: 46A Gender: Female Employment Training Specialist: CURTIS : 2000 Requested By: Clarisa Trinh (OB Clinic) Joy Order Number: [id number] Reading MD: Clarisa Trinh (OB Clinic) M Measurements Intervals [place] Rate: 97 P: 31 DE: 155 QRS: 42 QRSD: 81 T: 36 QT: 330 QTc: 420 Interpretive Statements SINUS RHYTHM POSSIBLE ANTERIOR MYOCARDIAL INFARCTION , OF INDETERMINATE AGE No previous ECG available for comparison /store/S0/[id number]/ecg/[id number]
--- NOTE | 2025-02-05 09:39 | XR_ITS ---
Examination: AP chest single view TECHNIQUE: AP upright portable chest single view Date and time: February 05, 2025, 0959 hours INDICATION: Chest pain shortness of breath today. FINDINGS: Cardiac contour appears mildly prominent although this is an AP portable projection No lobar pneumonia or pulmonary edema IMPRESSION: Recommend PA chest follow-up to exclude cardiomegaly
[2025-02-05 10:08] LABS: Basophils # (Auto) 0.0 Thou/mm3 (0.0-0.2); Basophils % (Auto) 0 % (0-2.5); Eosinophils # (Auto) 0.0 Thou/mm3 (0.0-0.5); Eosinophils % (Auto) 0 % (0-10); Hematocrit 31.8 % (36.0-46.0); Hemoglobin 9.7 g/dL (12.0-16.0); Immature Granulocytes Auto 0.10 Thou/mm3 (0.00-0.00); Lymphocytes # (Auto) 1.5 Thou/mm3 (1.0-4.8); Lymphocytes % (Auto) 16 % (10-50); Mean Corpuscular HGB Conc 30.5 g/dl (31.0-37.0); Mean Corpuscular Hemoglobin 22.8 pg (25.0-35.0); Mean Corpuscular Volume 75 fL (80-100); Monocytes # (Auto) 0.5 Thou/mm3 (0.0-0.8); Monocytes % (Auto) 5 % (0-12); Neutrophils # (Auto) 7.3 Thou/mm3 (1.8-7.7); Neutrophils % (Auto) 78 % (37-80); Nucleated Red Blood Cell # 0.00 Thou/mm3 (0.00-0.00); Nucleated Red Blood Cell % 0 /100 WBC (0); Platelet Count 247 Thou/mm3 (140-440); RDW Standard Deviation 54.4 fL (36.4-46.3); Red Blood Count 4.25 Miln/mm3 (4.00-5.20); White Blood Count 9.3 Thou/mm3 (3.6-11.0)
[2025-02-05 10:25] LABS: Fibrinogen 423 mg/dL (175-375); INR 0.9 (0.9-1.3); Partial Thromboplastin Time 28.5 Seconds (22.0-36.0); Prothrombin Time 9.6 Seconds (9.0-12.2)
[2025-02-05 10:29] LABS: Alanine Aminotransferase 10 U/L (10-49); Albumin, Serum 3.2 gm/dL (3.5-5.0); Albumin/Globulin Ratio 1.5 (1.2-2.2); Alkaline Phosphatase 182 U/L (46-116); Anion Gap 10 (7-16); Aspartate Amino Transferase 24 U/L (0-34); BUN/Creatinine Ratio 26 Ratio (12-20); Bilirubin,Total 0.3 mg/dL (0.3-1.2); Blood Urea Nitrogen 18 mg/dL (9-23); Calcium 9.3 mg/dL (8.3-10.6); Calcium (Corrected) 9.9 mg/dL (8.5-10.1); Carbon Dioxide 22.0 mMol/L (20.0-31.0); Chloride 110 mMol/L (98-107); Creatinine (Component) 0.7 mg/dL (0.6-1.3); Globulin 2.1 gm/dL (2.3-3.5); Glucose 81 mg/dL (74-106); LDH (Lactate Dehydrogenase) 218 U/L (120-246); Osmolality,Calculated 284 (275-295); Potassium 3.8 mMol/L (3.4-5.1); Sodium 142 mMol/L (136-145); Total Protein 5.3 gm/dL (5.7-8.2); Uric Acid 7.8 mg/dL (3.1-7.8); eGFR > 60 See Note
[2025-02-05] MEDS: LABETALOL INJ 5 MG/ML VIAL 20 ML 20 MG IVP ×2 (10:31→18:42)
[2025-02-05] MEDS: LABETALOL INJ 5 MG/ML VIAL 20 ML 40 MG IVP ×2 (11:08→19:23)
[2025-02-05 11:47] LABS: Syphilis Nonreactive (Nonreactive)
[2025-02-05 12:37] LABS: Collection Type, Urine Clean Catch
[2025-02-05 12:47] LABS: Bacteria,Urine Rare; Bilirubin,Urine Negative (Negative); Blood,Urine 1+ (Negative); Clarity,Urine Clear (Clear/Hazy); Color,Urine Yellow (Lt Yel-Yel); Glucose, Urine Negative (Negative); Hyaline Casts,Urine 1 /hpf (0-1); Ketones,Urine Negative (Negative); Leukocyte Esterase,Urine Negative (Negative); Nitrite,Urine Negative (Negative); PH,Urine 6.5 (5.0-7.0); Protein,Urine 3+ (Neg - Trace); RBC,Urine 26 /hpf (0-3); Specific Gravity,Urine 1.037 (1.001-1.035); Squamous Epithelial Cell,Urine 2 /hpf (0-5); Urobilinogen,Urine Negative mg/dL (0.0-1.0); WBC,Urine 12 /hpf (0-5)
[2025-02-05 12:47] LABS: Amphetamine/Metham Scrn,Ur OB Negative (Negative); Benzoylecgonine Screen, Ur OB Negative (Negative); Opiate Screen,Urine OB Negative (Negative); THC Screen,Urine OB Negative (Negative)
[2025-02-05 12:54] LABS: Creatinine,Random Urine 230 mg/dL (30-125)
[2025-02-05 13:05] LABS: Protein Total, Random Urine 1351 mg/dL (1-14)
[2025-02-05 15:03] LABS: Chlamydia trachomatis PCR Negative (Not Detect); Neisseria Gonorrhoeae DNA PCR Negative (Not Detect); Trichomonas Positive (Negative)
--- NOTE | 2025-02-05 18:49 | ESHP_ITS ---
Documentation for date of: 02/05/25 OB Labor/Induct. HPI History of Present Illness Chief complaint: Abdominal pain : 1 Para: 0 Term pregnancies: 0 pregnancies: 0 Living children: 0 History of Abortions: Spontaneous and Elective: 0 History of Vaginal deliveries: 0 History of sections: No History of : No ABHIJIT: 02/15/25 Gestational Age (weeks): 38 Gestational Age (days): 3 History of present illness: The patient is a 24-year-old G1, P0 with all care uncomplicated with Cherie Conti CNM who presented to labor and delivery via squad for abdominal pain. On presentation, her blood pressures were elevated in the 200s over 100s. Once the patient calmed down, her pressures were still high in the 160s to 170s over 90s. She was given hydralazine 5 followed by labetalol 20 and her blood pressures stabilized. She was 3 cm dilated on presentation. All her PIH labs were with the exception of a UP CR ratio which corresponded to 8 g of protein in 24 hours. Urinalysis with 3+ protein but quite concentrated with a specific gravity 1.037. Patient is extremely anxious and a poor historian. After admission, an epidural was placed. The plan is to induce the patient for elevated blood pressures at 38 weeks. If patient does not progress or her blood pressure is good to hard to control, we will proceed with primary low-transverse section. This was explained detail to the patient and the father of the baby. History of Present Dating criteria: LMP confirmed by 2nd trimester US Adequate Care: Yes Ultrasounds: normal mid trimester US Obstetrical complications: preeclampsia Medical complications: other (Maternal morbid obesity with a BMI of 43) Labs Maternal Blood Type: O Neg Labs: Positive: Chlamydia, Negative: RPR, Hepatitis B, Rubella Titre, HIV and Gonorrhea and Unknown: Herpes Type 1, Herpes Type 2, Group Beta Strep and Covid-19 Narrative: Patient was positive for chlamydia recently in the office and treated. She is positive for trichomonas on admission. Past Medical History Surgical History SURGICAL: Negative Section Meds Home Medications and Allergies Home Medications ?Medication ?Instructions ?Recorded ?Confirmed ?Type [id number] mg-1 1 tab PO QDAY 2 5 02/05/25 History mg chewable tablet Allergies Allergy/AdvReac Type Severity Reaction Status Date / Time Penicillins Allergy Vomiting Verified 02/05/25 09:00 OB Exam Physical Exam Vital signs: Temp Pulse Resp BP Pulse Ox O2 Del Method 98.9 F 100 18 174/84 H 98 Room Air 02/05/25 08:53 02/05/25 18:42 02/05/25 08:53 02/05/25 18:42 02/05/25 18:47 02/05/25 08:53 Detailed Labor and Delivery Exam Dilation (cm): On admission 3 Cervix position: mid station: -2 Consistency: soft Presentation: Vertex Membranes: intact Amniotic fluid: clear monitor accelerations: 15x15 monitor decelerations: None marketing planner variability: Moderate (11-25) Contraction frequency (min): Irregular OB Results Labs 02/05/25 09:50 02/05/25 09:50 Labs: Short CBC 02/05/25 Range/Units 09:50 WBC 9.3 (3.6-11.0) Thou/mm3 Hgb 9.7 L (12.0-16.0) g/dL Hct 31.8 L (36.0-46.0) % Plt Count 247 (140-440) Thou/mm3 BMP 02/05/25 09:50 Sodium 142 Potassium 3.8 Chloride 110 H Carbon Dioxide 22.0 BUN 18 Creatinine 0.7 Glucose 81 Calcium 9.3 Liver Function 02/05/25 Range/Units 09:50 Total Bilirubin 0.3 (0.3-1.2) mg/dL AST 24 (0-34) U/L ALT 10 (10-49) U/L Alkaline Phosphatase 182 H (46-116) U/L Albumin 3.2 L (3.5-5.0) gm/dL Urine 02/05/25 Range/Units 12:15 Urine Color Yellow (Lt Yel-Yel) Urine Clarity Clear (Clear/Hazy) Urine pH 6.5 (5.0-7.0) Ur Specific [place] 1.037 H (1.001-1.035) Urine Protein 3+ A (Neg - Trace) Urine Glucose (UA) Negative (Negative) OB Assessment & Plan Assessment and Plan (1) Encounter for supervision of high risk in third trimester, antepartum: Status: Acute (2) Rh D negative blood type: Status: Acute Assessment and plan: RhoGAM after delivery (3) Severe preeclampsia: Status: Acute Assessment and plan: Admit for induction of labor. Additional Plan Induction method: per misoprostol protocol Plan: induction and GBS prophylaxis tx Additional Plan Comment: No group B strep available. Allergic to penicillin. Started on clindamycin for group B strep prophylaxis. Given IV Flagyl for positive trichomonas. (3) Severe preeclampsia Qualifiers: Trimester: third trimester Qualified Code(s): O14.13 - Severe pre-eclampsia, third trimester
[2025-02-05] MEDS: metroNIDAZOLE/NS 500 MG IVPB 500 MG/100 ML BAG 100 MG IV (18:53)
[2025-02-05] MEDS: RINGERS LACTATED 1000 ML 1,000 ML 100 ML IV (21:13)
[2025-02-05] MEDS: LABETALOL INJ 5 MG/ML VIAL 20 ML 80 MG IVP (21:37)
[2025-02-06] VITALS (105 sets, daily range): BP systolic 126–179; BP diastolic 64–93; PULSE 78–117; RESP 16–18; TEMP 36.5–37.5; O2SAT 88–100
[2025-02-06] MEDS: OXYTOCIN INJ 10 UNIT/ML VIAL IM (03:26)
[2025-02-06] MEDS: MINERAL OIL 30 ML UDC TOP (03:26)
[2025-02-06] MEDS: OXYTOCIN in NS 20 units 20 UNIT/1,000 ML BAG 125 UNIT IV (03:26)
[2025-02-06] MEDS: TRANEXAMIC ACID 1,000 MG IVPB 1,000 MG/100 ML BAG 200 MG IV (03:27)
--- NOTE | 2025-02-06 03:57 | PD.LDDELS ---
Data ([facility]) Data Hx Section: No Maternal Blood Type: O Neg Rubella Titre: Positive RPR: Non-reactive Labs: Negative: RPR, Hepatitis B, HIV, Chlamydia and Gonorrhea and Unknown: Group Beta Strep : 1 Term: 0 : 0 Livin Abortions: Spontaneous & Theraputic: 0 Delivery Data ([facility]) Labor Data Initiation of labor: Induction Induction/Augmentation Agent: Cytotec-PO ROM date: 02/05/25 ROM time: 17:35 Amniotic membrane rupture type: Artificial Amniotic fluid description: Clear Delivery Data EDC: 02/15/25 EDC calculated by:: LMP/early US confirmation Date of arrival to unit: 02/05/25 Time of arrival to unit: 09:30 Onset of labor date: 02/05/25 Onset of labor time: 17:35 Complete dilation date: 02/06/25 Complete dilation time: 02:19 [place] delivery date: 02/06/25 delivery time: 03:16 Gestational age (weeks): 38 Gestational age (days): 5 Placenta delivery date: 02/06/25 Placenta delivery time: 03:21 Stage 1 total time: Labor - Stage 1 Duration 8 hours and 44 minutes Delivered by: [facility] ([facility]) Delivery nurse: AMADOU HEARN [facility] nurse: ELISHA HEARN [employer] [place] Operator at delivery: No Support person(s) at delivery: FATHER OF Delivery Method Delivery method: Normal Vaginal Delivery Presentation: Vertex position: OA Anesthesia Type Anesthesia Type: Epidural Delivery Room Medications Delivery room medications: Pitocin 10 u IM, Pitocin 20 u IV, Cytotec 800 NV and other (TXA) Placenta Placenta delivery description: Spontaneous Cord blood sent to lab: Yes cord blood collection: Cord Blood Type Episiotomy Episiotomy description: None Lacerations #1: Perineal: 1st degree Perineal repair Sutures used for repair: other (2-0 chromic) EBL Estimated blood loss (ml): 300 Umbilical Cord cord description: 3 Vessels Additional Procedures Patient is a 24-year-old G1, P0 at 38-4/7 weeks who presented with elevated blood pressures around 9:00 in the morning on 02/05/2025 by ambulance. She was having abdominal pain. She was 3 cm dilated on presentation. She was admitted and preeclamptic labs were drawn, chest x-ray and EKG were performed on admission as patient was reporting chest pain. Her labs were normal with the exception of a UPCR ratio which was equivalent to 8 g of protein in 24 hours. Her platelets were normal, liver tests were normal, BUN/creatinine were normal. Her hemoglobin was low at 9.7. She was admitted had epidural placed and Cytotec orally placed. She was AROMED at 1740 and she was 4 cm dilated .Pitocin was begun she went on to progress to complete by 219 in the morning on 02/06/2025. She labored down for about 45 minutes. She began pushing around 3:00 in the morning and pushed through five contractions delivering a liveborn female at 3:16 AM. Findings: liveborn female in the VICENTA presentation with no nuchal cord no meconium .Apgars were 8 and 9. Weight was 6 pounds 2 ounces. Placenta was complete, spontaneous, grossly normal delivering within 5 minutes of the baby delivering. As the baby was vigorous at , she was placed on mom's chest and delayed cord Clamping was obtained for approximately 1 minute. After the placenta delivered, the patient had a large amount of brisk bleeding. This required intrauterine massage and the administration of IM Pitocin, IV Pitocin, and 800 mcg of Cytotec followed by TXA. The patient sustained a first-degree laceration repaired in a standard fashion using 2-0 chromic. This patient cervix was oozing. Some packing was called for and one half of a Curlex placed in the vagina. The plan will be to remove this in 2 hours. The patient has 2 IV lines and 2 units on hold. Will recheck hemoglobin in 6 hours. Complications Complications: Small hemorrhage Data ([facility]) Data order: 1 [place]'s gender: Female Identification band number: [id number] weight (gms): 2780 g Weight (pounds): 6 lbs and 2.1 ozs length: 48.26 cm 1 minute: 8 5 minutes: 9 10 minutes: 9
[2025-02-06] MEDS: ONDANSETRON INJ 2 MG/ML INJ 2 ML 4 MG IVP (04:01)
[2025-02-06] MEDS: LABETALOL INJ 5 MG/ML VIAL 20 ML 20 MG IVP (04:04)
[2025-02-06] MEDS: BENZO/LANO/ALOE (Dermoplast) 60 GM CAN 1 SPRAY TOP (04:07)
[2025-02-06] MEDS: NIFEdipine XL 30 MG TABCR 60 MG PO (04:38)
[2025-02-06] MEDS: IBUPROFEN TAB 400 MG TABLET 800 MG PO ×2 (04:42→15:00)
[2025-02-06] MEDS: LABETALOL INJ 5 MG/ML VIAL 20 ML 40 MG IVP (05:01)
[2025-02-06 06:42] LABS: Basophils # (Auto) 0.0 Thou/mm3 (0.0-0.2); Basophils % (Auto) 0 % (0-2.5); Eosinophils # (Auto) 0.0 Thou/mm3 (0.0-0.5); Eosinophils % (Auto) 0 % (0-10); Hematocrit 28.6 % (36.0-46.0); Immature Granulocytes Auto 0.08 Thou/mm3 (0.00-0.00); Lymphocytes # (Auto) 0.6 Thou/mm3 (1.0-4.8); Lymphocytes % (Auto) 5 % (10-50); Mean Corpuscular HGB Conc 30.8 g/dl (31.0-37.0); Mean Corpuscular Hemoglobin 23.5 pg (25.0-35.0); Mean Corpuscular Volume 77 fL (80-100); Monocytes # (Auto) 0.4 Thou/mm3 (0.0-0.8); Monocytes % (Auto) 3 % (0-12); Neutrophils # (Auto) 10.6 Thou/mm3 (1.8-7.7); Neutrophils % (Auto) 91 % (37-80); Nucleated Red Blood Cell # 0.00 Thou/mm3 (0.00-0.00); Nucleated Red Blood Cell % 0 /100 WBC (0); Platelet Count 238 Thou/mm3 (140-440); RDW Standard Deviation 56.5 fL (36.4-46.3); Red Blood Count 3.74 Miln/mm3 (4.00-5.20); White Blood Count 11.7 Thou/mm3 (3.6-11.0)
[2025-02-06 06:59] LABS: Hemoglobin 8.8 g/dL (12.0-16.0)
[2025-02-06] MEDS: CLINDAMYCIN 900MG IVPB 900 MG in PRE-MIXED 1 BAG 50 MG IV ×3 (08:06→21:23)
[2025-02-06] MEDS: DOCUSATE SOD 100 MG CAPSULE PO (08:28)
[2025-02-06 09:20] LABS: Alanine Aminotransferase 12 U/L (10-49); Albumin, Serum 2.9 gm/dL (3.5-5.0); Albumin/Globulin Ratio 1.6 (1.2-2.2); Alkaline Phosphatase 162 U/L (46-116); Anion Gap 12 (7-16); Aspartate Amino Transferase 22 U/L (0-34); BUN/Creatinine Ratio 29 Ratio (12-20); Bilirubin,Total 0.3 mg/dL (0.3-1.2); Blood Urea Nitrogen 26 mg/dL (9-23); Calcium 8.0 mg/dL (8.3-10.6); Calcium (Corrected) 8.9 mg/dL (8.5-10.1); Carbon Dioxide 19.3 mMol/L (20.0-31.0); Chloride 110 mMol/L (98-107); Creatinine (Component) 0.9 mg/dL (0.6-1.3); Estimated Creatinine Clearance 113.1 mL/min (>60); Globulin 1.8 gm/dL (2.3-3.5); Glucose 102 mg/dL (74-106); Osmolality,Calculated 285 (275-295); Potassium 4.2 mMol/L (3.4-5.1); Sodium 141 mMol/L (136-145); Total Protein 4.7 gm/dL (5.7-8.2); eGFR > 60 See Note
--- NOTE | 2025-02-06 09:26 | ESPR_ITS ---
Subjective Subjective Interval history: Patient doing well overall. Minimal discomfort. She is ambulating no lightheadedness/dizziness. Voiding spontaneously, no issues. Tolerating regular diet without nausea/vomiting. Lochia tapering as expected. No GALLOWAY, vision changes or RUQ pain. No fevers/chills, no CP/SOB. Exam Vital Signs Temp Pulse Resp BP Pulse Ox O2 Del Method 97.8 F 90 16 142/83 H 96 Room Air 02/06/25 08:00 02/06/25 08:00 02/06/25 08:00 02/06/25 08:00 02/06/25 05:32 02/06/25 08:00 Narrative Exam General: well developed, well nourished, no acute distress, conversant Cardiac: normal heart rate Lungs: breathing without distress Abdomen: soft, obese, post-gravid, non-tender, no rebound or guarding, Fundus firm at u-3cm. Extremities: no pain with palpation of calves, trace edema of BLE Objective Labs 02/06/25 06:00 02/05/25 09:50 Labs: Laboratory Results - last 24 hr 02/05/25 02/05/25 02/05/25 09:50 10:53 12:15 WBC 9.3 RBC 4.25 Hgb 9.7 L Hct 31.8 L MCV 75 L MCH 22.8 L MCHC 30.5 L RDW Std Deviation 54.4 H Plt Count 247 Neut % (Auto) 78 Lymph % (Auto) 16 [place] % (Auto) 5 Eos % (Auto) 0 Baso % (Auto) 0 Neut # (Auto) 7.3 Lymph # (Auto) 1.5 [place] # (Auto) 0.5 Eos # (Auto) 0.0 Baso # (Auto) 0.0 Immature Gran # (Auto) 0.10 H Absolute Nucleated RBC 0.00 Immature Gran % 1 H Nucleated RBC % 0 PT 9.6 INR 0.9 APTT 28.5 Fibrinogen 423 H Sodium 142 Potassium 3.8 Chloride 110 H Carbon Dioxide 22.0 Anion Gap 10 BUN 18 Creatinine 0.7 Estim Creat Clear Calc Not Performed. eGFR > 60 BUN/Creatinine Ratio 26 H Glucose 81 Calculated Osmolality 284 Uric Acid 7.8 Calcium 9.3 Corrected Calcium 9.9 Total Bilirubin 0.3 AST 24 ALT 10 Alkaline Phosphatase 182 H Lactate Dehydrogenase 218 Total Protein 5.3 L Albumin 3.2 L Globulin 2.1 L Albumin/Globulin Ratio 1.5 Ur Collection Type Clean Catch Urine Color Yellow Urine Clarity Clear Urine pH 6.5 Ur Specific [place] 1.037 H Urine Protein 3+ A Urine Glucose (UA) Negative Urine Ketones Negative Urine Blood 1+ A Urine Nitrite Negative Urine Bilirubin Negative Urine Urobilinogen (Auto) Negative Ur Leukocyte Esterase Negative Urine RBC 26 H Urine WBC 12 H Ur Squamous Epith Cells 2 Urine Bacteria Rare Hyaline Casts 1 Ur Random Creatinine 230 H U Random Total Protein 1351 H Urine Opiates Screen Negative U Amphetamin/Meth Scrn Negative U Cocaine Metab Screen Negative U Marijuana (THC) Screen Negative Syphilis Serology Nonreactive Chlam trachomat DNA PCR Negative N.gonorrhoeae DNA (PCR) Negative Trichomonas DNA Probe Positive A Blood Type O Negative Antibody Screen POSITIVE Antibody Identification Anti-D from RhoGam Crossmatch See Detail Blood Bank Wristband ID Yes 02/06/25 06:00 WBC 11.7 H RBC 3.74 L Hgb 8.8 L Hct 28.6 L MCV 77 L MCH 23.5 L MCHC 30.8 L RDW Std Deviation 56.5 H Plt Count 238 Neut % (Auto) 91 H Lymph % (Auto) [address] % (Auto) 3 Eos % (Auto) 0 Baso % (Auto) 0 Neut # (Auto) 10.6 H Lymph # (Auto) 0.[address] [place] # (Auto) 0.4 Eos # (Auto) 0.0 Baso # (Auto) 0.0 Immature Gran # (Auto) 0.08 H Absolute Nucleated RBC 0.00 Immature Gran % 1 H Nucleated RBC % 0 PT INR APTT Fibrinogen Sodium Potassium Chloride Carbon Dioxide Anion Gap BUN Creatinine Estim Creat Clear Calc eGFR BUN/Creatinine Ratio Glucose Calculated Osmolality Uric Acid Calcium Corrected Calcium Total Bilirubin AST ALT Alkaline Phosphatase Lactate Dehydrogenase Total Protein Albumin Globulin Albumin/Globulin Ratio Ur Collection Type Urine Color Urine Clarity Urine pH Ur Specific [place] Urine Protein Urine Glucose (UA) Urine Ketones Urine Blood Urine Nitrite Urine Bilirubin Urine Urobilinogen (Auto) Ur Leukocyte Esterase Urine RBC Urine WBC Ur Squamous Epith Cells Urine Bacteria Hyaline Casts Ur Random Creatinine U Random Total Protein Urine Opiates Screen U Amphetamin/Meth Scrn U Cocaine Metab Screen U Marijuana (THC) Screen Syphilis Serology Chlam trachomat DNA PCR N.gonorrhoeae DNA (PCR) Trichomonas DNA Probe Blood Type Antibody Screen Antibody Identification Crossmatch Blood Bank Wristband ID Assessment & Plan Problem List (1) Severe preeclampsia: Status: Acute Assessment and plan: I assumed care of Sarah this morning at 0700. She delivered with Dr. Trinh at 0315 this morning. Sarah is a 24yo G1 nowP1 s/p uncomplicated after presenting in early labor and receiving diagnosis of pre-eclampsia, doing well on PPD 0. Urine p:c 5.9. Right after delivery she received IV labetalol and was started on nifedipine 60mg XL PO QD (received first dose at 0438). Since then, blood pressures have been normal to mild range. She denies all sx of pre-E. Benign exam. Hemodynamically stable with no evidence of infection. Appropriate change in H/H from 9.7 to 8.8. She had vaginal packing in place for cervical oozing after delivery and this was removed by RN earlier this morning with normal lochia noted since. complicated by: Current BMI 42.5 Pre-eclampsia Trichomonas testing positive on admission- treated with IV flagyl 500mg x1 after admission. Plan: -Continue routine care -Continue Nifedipine 60mg XL PO QD. If she develops recurrent severe range bp's, will initiate IV MgSO4. -Will continue flagyl 500mg PO BID x 7 days -Regular diet -Encourage ambulation (2) Encounter for supervision of high risk in third trimester, antepartum: Status: Acute (3) Rh D negative blood type: Status: Acute (4) Trichomonal vaginitis during in third trimester: Status: Acute (5) care and examination immediately after delivery: Status: Acute Time Spent With Patient Time: Total time spent is greater than 50% in coordination of care (as documented) at patient's floor/unit and/or counseling patient:
[2025-02-06] MEDS: FERRIC SOD GLUC INJ 125 MG in SODIUM CHLORIDE 0.9% 100 ML 110 MG IV (10:55)
--- NOTE | 2025-02-06 16:42 | PC.CC ---
Addendum entered by Noemi Germain 02/06/25 17:19: Fiberline Supervisor received permission from Pt and FOB to speak with paternal grandfather Young Santamaria [phone]. Who confirmed baby has all supplies and he will be providing transportation and support to both parents. Original Note: Sarah Gore is a 24-year-old female admitted for labor and delivery care. Fiberline Supervisor made contact with Pt at bedside to complete ob assessment and discuss discharge disposition. Role and reason for the contact was explained to Pt. Demographic information was verified. Pt identified father of baby Kermit [facility] [phone] as surrogate decision maker. Pt is independent with all ADLs, no source of DME. PCP is [facility]. At time of discharge patient will return home, family will provide transportation. Mother plans on combo feeing, has car seat, and all supplies for baby. Mother denies any use of substance, no DV, no CPS. Mother reports support system provided by extended family and FOB. Mother and father reported special needs - referral to [facility] was submitted and resources were explained and given to parents. Discharge Plan: [facility] [phone] PCP: F[facility]EL[facility]
[2025-02-07] VITALS (8 sets, daily range): BP systolic 123–158; BP diastolic 75–97; PULSE 90–99; RESP 18; TEMP 36.4–36.8; O2SAT 99–100
[2025-02-07] MEDS: NIFEdipine XL 30 MG TABCR 60 MG PO ×2 (08:04→21:31)
[2025-02-07] MEDS: DOCUSATE SOD 100 MG CAPSULE PO (08:04)
[2025-02-07] MEDS: LABETALOL 100 MG TABLET 200 MG PO ×2 (11:22→22:33)
--- NOTE | 2025-02-07 11:31 | PD.LDPPPRG ---
Subjective Subjective Interval history: Patient doing well overall. Minimal discomfort. She is ambulating no lightheadedness/dizziness. Voiding spontaneously, no issues. Tolerating regular diet without nausea/vomiting. Lochia tapering as expected. No fevers/chills, no CP/SOB. She denies GALLOWAY, vision changes and RUQ pain. Exam Vital Signs Temp Pulse Resp BP Pulse Ox O2 Del Method 98.2 F 99 18 151/91 H 100 Room Air 02/07/25 11:22 02/07/25 11:22 02/07/25 11:22 02/07/25 11:22 02/07/25 11:22 02/07/25 11:22 Narrative Exam General: well developed, well nourished, no acute distress, conversant Cardiac: normal heart rate Lungs: breathing without distress Abdomen: soft, obese, post-gravid, non-tender, no rebound or guarding, Fundus firm at u-3cm. Extremities: no pain with palpation of calves, trace edema of BLE Objective Labs 02/06/25 06:00 02/06/25 06:00 Labs: Laboratory Results - last 24 hr 02/06/25 12:20 Rho(D) IG Studies Ready Maternal Bleed Negative Assessment & Plan Problem List (1) Severe preeclampsia: Status: Acute (2) Encounter for supervision of high risk in third trimester, antepartum: Status: Acute Assessment and plan: Sarah is a 24yo G1 now P1 s/p uncomplicated after presenting in early labor and receiving diagnosis of pre-eclampsia, doing well on PPD 1. Urine p:c on admission was 5.9. Right after delivery she received IV labetalol and was started on nifedipine 60mg XL PO QD (received first dose at 0438). Since then, blood pressures have been mostly mild range (no severe range bp's). She denies all sx of pre-E. Benign exam. Hemodynamically stable with no evidence of infection. Appropriate change in H/H from 9.7 to 8.8. 1 dose of IV iron given on 02/06. complicated by: Current BMI 42.5 Pre-eclampsia Trichomonas testing positive on admission- treated with IV flagyl 500mg x1 upon admission. Plan: -Continue routine care -To address recent high mild range bp's: will increase Nifedipine from 60mg XL PO QD to BID. Will also add labetalol 200mg PO TID. Discussed with patient the importance of taking her oral bp meds exactly as prescribed when she goes home because if high bp is left untreated she could have a stroke or even . She voiced her understanding. I also informed her that she needs a bp check in office within a few days of discharge to ensure bp is still being appropriately controlled by bp meds prescribed upon discharge -Will continue flagyl 500mg PO BID x 7 days -Repeat H/H ordered -Regular diet -Encourage ambulation (3) Rh D negative blood type: Status: Acute (4) Trichomonal vaginitis during in third trimester: Status: Acute (5) care and examination immediately after delivery: Status: Acute Time Spent With Patient Time: Total time spent is greater than 50% in coordination of care (as documented) at patient's floor/unit and/or counseling patient:
[2025-02-07 11:45] LABS: Hematocrit 27.3 % (36.0-46.0)
[2025-02-07 12:37] LABS: Hemoglobin 8.3 g/dL (12.0-16.0)
[2025-02-08 04:00] VITALS: BP 133/77; PULSE 90; RESP 20; TEMP 36.5; O2SAT 99
[2025-02-08 06:23] VITALS: BP 136/68; PULSE 100
[2025-02-08] MEDS: LABETALOL 100 MG TABLET 200 MG PO ×2 (06:23→13:50)
[2025-02-08] MEDS: DIPHTH,PERTUSS(ACELL),TET VAC 0.5 ML SYR- ADULT IMi (06:31)
[2025-02-08] MEDS: DOCUSATE SOD 100 MG CAPSULE PO (08:28)
[2025-02-08 08:29] VITALS: BP 149/84; PULSE 97
[2025-02-08] MEDS: NIFEdipine XL 30 MG TABCR 60 MG PO (08:29)
[2025-02-08 08:30] VITALS: BP 149/84; PULSE 97; RESP 18; TEMP 36.6; O2SAT 99
[2025-02-08 11:50] VITALS: BP 127/84; PULSE 95; RESP 18; TEMP 36.6; O2SAT 99
[2025-02-08 13:50] VITALS: BP 136/80; PULSE 74
--- NOTE | 2025-02-08 15:54 | PC.NURSE ---
SPOKE TO SANCHEZ FROM PIT WORKER POWER SHOVEL REGARDING THIS RN RECEIVING AN ANONYMOUS CALL REGARDING PATIENTS LIVING CONDITIONS, BOTH PARENTS NOT WORKING, [facility] 3 TIMES IN PAST MONTHS, FATHER OF SOH[facility] BUILT A SEPARATE ROOM FOR PT AND FOB, THEY HAVE DOGS AND CATS LIVING IN THERE AND HAVE NOT GONE TO CLEAN AFTER PETS, BABIES CRIB AND CLOTHING WAS GIVEN BY AUNT, PIT WORKER POWER SHOVEL WILL GO SPEAK AGAIN WITH PT
--- NOTE | 2025-02-08 16:25 | PC.NURSE ---
Addendum entered by Tonya Marvin RN 02/08/25 16:26: [facility] Original Note: [facility] high risk referral faxed
--- NOTE | 2025-02-08 16:26 | PC.NURSE ---
[facility] high risk referral faxed
--- NOTE | 2025-02-08 16:36 | PC.SS ---
SUPERVISOR EXTRUDING DEPARTMENT received referral indicating concerns regarding patient's living condition. Concerns noted patient's residence contained high amount of pets. In addition, it was reported pet feces in residence. SUPERVISOR EXTRUDING DEPARTMENT met with patient and FOB. Patient gave permission for FOB to be present during discussion. Patient confirmed that residence contains pets but that pets are outside in kennels. Patient stated pets transitioned to kennels due to delivery of . Patient and FOB denied presence of animal feces in residence. No concerns with family dynamics identified by the patient. FOB and patient confirmed that they reside with FOB's father, Macy Dubois. Per patient, FOB's father has been supportive to patient throughout . Patient confirms access to basic utilities and provisions. No concerns reported by bedside nursing regarding parents interaction with . Patient and FOB engaged and responsive with SUPERVISOR EXTRUDING DEPARTMENT during discussion. SUPERVISOR EXTRUDING DEPARTMENT confirmed through chart review that [facility] referral submitted on the patient's behalf. Nursing staff confirmed referral to [facility] submitted. SUPERVISOR EXTRUDING DEPARTMENT updated labor and delivery charge nurse and social media specialist. No grounds for CWS report to be submitted.
--- NOTE | 2025-02-08 17:38 | PD.LDPPPRG ---
Subjective Subjective Interval history: The patient is a 24-year-old -0-0-1 status post vaginal delivery 02/06/2025. She is day #2. She is doing well on her blood pressure medications. She is on 60 of Procardia XL twice daily and 200 labetalol 3 times daily. She is ambulating tolerating a general diet voiding. She denies headaches changes in vision. She would like to go home. Exam Vital Signs Temp Pulse Resp BP Pulse Ox O2 Del Method 98 F 74 18 136/80 H 99 Room Air 02/08/25 11:50 02/08/25 13:50 02/08/25 11:50 02/08/25 13:50 02/08/25 11:50 02/08/25 11:50 Narrative Exam Fundus firm nontender extremities show no significant edema or erythema. Objective Labs 02/07/25 11:30 02/06/25 06:00 Labs: Laboratory Results - last 24 hr 02/05/25 09:50 Crossmatch See Detail Assessment & Plan Problem List (1) Severe preeclampsia: Problem details: Home on Procardia XL 60 twice daily and labetalol 200 3 times daily. The importance of taking her medications was stressed. Signs and symptoms of severe preeclampsia were discussed. Patient will follow-up in 1 week for a blood pressure check. Status: Acute (2) Rh D negative blood type: Problem details: Status post RhoGAM Status: Acute (3) Trichomonal vaginitis during in third trimester: Problem details: Patient was treated with Flagyl IV and oral Flagyl she will finish 1 week of p.o. Flagyl. Status: Acute (4) care following vaginal delivery: Problem details: Discharge instructions given including pelvic rest x 6 weeks. Status: Acute Time Spent With Patient Time: Total time spent is greater than 50% in coordination of care (as documented) at patient's floor/unit and/or counseling patient: Time with patient: less than 15 minutes
--- NOTE | 2025-02-08 17:42 | PD.LDDS ---
DS: Providers Provider Date of admission: 02/05/25 11:00 Primary care physician: Physician No Primary/Family Admitting Provider: Clarisa [facility]h [facility] ([facility]) Attending Provider on Admission: Clarisa Trinh MD ([facility]) Consults: 02/06/25 04:11 Referral Routine Comment: Attending Provider on DC: Clarisa Trinh MD ([facility]) Discharging Provider: Clarisa Trinh MD ([facility]) Anticipated date of discharge: 02/08/25 DS: Diagnosis Discharge Diagnosis (1) care following vaginal delivery: Status: Acute Assessment & Plan: Discharge instructions given (2) Trichomonal vaginitis during in third trimester: Status: Acute Assessment & Plan: Flagyl to finish 1 week of total treatment (3) Severe preeclampsia: Status: Acute Assessment & Plan: Home on Procardia XL 60 twice daily labetalol 200 3 times daily (4) Rh D negative blood type: Status: Acute Assessment & Plan: Status post RhoGAM Problem List Completed Was Problem List Reviewed/Reconciled?: Yes Summary/Hosp Course Brief History: The patient is a 24-year-old G1, P0 with all care uncomplicated with Cherie Conti CNM who presented to labor and delivery via squad for abdominal pain. On presentation, her blood pressures were elevated in the 200s over 100s. Once the patient calmed down, her pressures were still high in the 160s to 170s over 90s. She was given hydralazine 5 followed by labetalol 20 and her blood pressures stabilized. She was 3 cm dilated on presentation. All her PIH labs were normal with the exception of a UP CR ratio which corresponded to 8 g of protein in 24 hours. Urinalysis with 3+ protein but quite concentrated with a specific gravity 1.037. Patient is extremely anxious and a poor historian. After admission, an epidural was placed. The plan was to induce the patient for elevated blood pressures at 38 weeks. If patient did not progress or her blood pressure were hard to control, we would proceed with primary low-transverse section. This was explained in detail to the patient and the father of the baby. Please see history and physical for further details. Hospital course: Patient was admitted had labor epidural placed and was induced. She progressed to complete and delivered vaginally at around 4:00 in the morning on 02/06/2025. Please see delivery record for further details. On post day #1 the patient's blood pressures were difficult to control. I had started the patient on Procardia XL [address] Mcneal started the patient on labetalol 200 TID daily and bumped up her Procardia XL to 60 twice daily. The patient's labs were stable. By post day #2, the patient's blood pressures were stable in the 130s to 140s over 80s range with no signs of severe preeclampsia. She was taking her blood pressure medications. She was discharged home day #2 in stable condition. Peripartum Data Delivery Method: Normal Vaginal Delivery Episiotomy Description: None Laceration Description: see Delivery Summary Procedures: Procedures Operation Date: 02/05/25 22:45 <No data on this case meets the specified criteria> complications: none Status at Discharge Cognitive/behavioral status at discharge: Patient's alert and oriented x 3 in no apparent distress Functional status at discharge: independent ambulation Overall status at discharge: patient is progressing back to baseline Time Spent with Patient Time attestation: Total time spent providing and/or coordinating discharge services: Time spent: Less than 30 minutes Specific discharge activities: No intercourse tampons douching bathtubs x 6 weeks take all blood pressure medications. Follow-up in 1 week. Exam Vital Signs Temp Pulse Resp BP Pulse Ox O2 Del Method 98 F 74 18 136/80 H 99 Room Air 02/08/25 11:50 02/08/25 13:50 02/08/25 11:50 02/08/25 13:50 02/08/25 11:50 02/08/25 11:50 Narrative Exam Patient is alert and oriented x 3 in no apparent distress. Fundus firm, NT at umbilicus. Extremities show no significant edema or erythema. Discharge Plan Plan Patient Disposition: HOME (Self Care) Disposition Comment: Stable Patient condition on transfer: Stable Prescriptions/Referrals Prescriptions/Med Rec: New acetaminophen 325 mg Tablet 650 mg PO Q6HR PRN (Reason: Patient rated pain of 3) Qty: 60 0RF metronidazole 250 mg Tablet 500 mg PO BID Qty: 20 0RF ibuprofen 400 mg Tablet 800 mg PO Q8HR PRN (Reason: Pain Or Fever > 101) Qty: 60 0RF docusate sodium 100 mg Capsule 100 mg PO QDAY Qty: 30 0RF labetalol 100 mg Tablet 200 mg PO TID Qty: 90 0RF Continued ferrous sulfate 325 mg (65 mg iron) tablet 325 mg PO BID Qty: 60 2RF No Action wtazgnw-iwov-LT 40-1 mg tablet,chewable 1 tab PO QDAY Referrals: No Primary/Family,Physician [Primary Care Provider] Patient/Caregiver Discharge Instructions Discharge Activity: activity as tolerated and other Other Discharge Activity Instructions:: vaginal rest and no heavy lifting more than 10 pounds for 6 weeks Other Discharge Diet Instructions: regular diet Education Materials: Trichomonas Vaginalis (Discharge), After a Vaginal , Understanding Preeclampsia, Breast Care After , Incision Care After Vaginal , Understanding Depression Print Language: Latvian Activity Restrictions/Additional Instructions: follow up with Cherie Conti within 1 week for blood pressure check, call clinic to make appointment Stand Alone Forms: Asiya Award Info., Patient Portal Info Letter Discharge Order Discharge Orders: Discharge (Routine); Ordered 02/08/25 Ordered By: Clarisa Trinh ([facility]) Planned Discharge Date 02/08/25 (3) Severe preeclampsia Qualifiers: Trimester: third trimester Qualified Code(s): O14.13 - Severe pre-eclampsia, third trimester
== END 2025-02-08 20:15 | disposition home or self-care (01) | DRG 560 ==
LOC: S4SX 21:45 → S4NX 02-06 05:49
PROVIDERS: Obstetrics & Gynecology; Admitting Provider Obstetrics & Gynecology; Visit Provider Obstetrics & Gynecology
DX: O14.14 Severe pre-eclampsia complicating childbirth (principal); Z37.0 Single live birth; Z3A.38 38 weeks gestation of pregnancy; O70.0 First degree perineal laceration during delivery; O72.1 Other immediate postpartum hemorrhage; O99.214 Obesity complicating childbirth; E66.01 Morbid (severe) obesity due to excess calories; Z67.41 Type O blood, Rh negative; Z88.0 Allergy status to penicillin
CPT/HCPCS: 36415; 59025; 59409; 71045; 76805; 80053; 80307; 81001; 82570; 83615; 84156; 84550; 85014; 85018; 85025; 85384; 85461; 85610; 85730; 86780; 86850; 86870; 86900; 86901; 86920; 87086; 87491; 87591; 87661; 90707; 90715; 93005; 94762; J0360; J0736; J2405; J2590; J2790; J2795; J2916; J3010; J3490; J7050; J7120; S0191; A9270; J1836; J1920

== ENCOUNTER 2025-02-23 14:29 | Outpatient (AMB) | payer MEDICAID, SELFPAY ==
[2025-02-23 14:56] VITALS: BP 160/84; PULSE 107; RESP 18; TEMP 36.2; O2SAT 98
--- NOTE | 2025-02-23 14:56 | AMB.OBPP ---
Vital Signs 02/23/25 14:56 Weight 98.033 kg Weight Measurement Method Standing Scale BP 160/84 H Blood Pressure Source Automatic Cuff Blood Pressure Location Left Upper Arm Position Sitting Respiration 18 Pulse 107 H Pulse Source Monitor Temp 97.2 F Temp Source Oral Pulse Oximetry (%) 98 Oxygen Delivery Method Room Air Allergies/Home Meds Allergies & Medications Allergies Penicillins Allergy (Verified 02/23/25 14:57) Vomiting Medication Reconciliation ferrous sulfate 325 mg (65 mg iron) tablet 325 mg PO BID #60 tabs 12/16/24 [Rx Confirmed 02/23/25] mosbuzb-apec-BI 40 mg-1 mg chewable tablet 1 tab PO QDAY 02/05/25 [History Confirmed 02/23/25] acetaminophen 325 mg tablet 650 mg (2 x 325 mg) PO Q6HR PRN Patient rated pain of 3 #60 tabs 02/08/25 [Rx Confirmed 02/23/25] docusate sodium 100 mg capsule 100 mg PO QDAY #30 caps 02/08/25 [Rx Confirmed 02/23/25] ibuprofen 400 mg tablet 800 mg (2 x 400 mg) PO Q8HR PRN Pain Or Fever > 101 #60 tabs 02/08/25 [Rx Confirmed 02/23/25] labetalol 100 mg tablet 200 mg (2 x 100 mg) PO TID #90 tabs 02/08/25 [Rx Confirmed 02/23/25] metronidazole 250 mg tablet 500 mg (2 x 250 mg) PO BID #20 tabs 02/08/25 [Rx Confirmed 02/23/25] nifedipine 30 mg tablet,extended release 24 hr (Procardia XL) 30 mg PO QDAY #30 tabs 02/23/25 [Rx] Intake Visit Data Collection New Patient or Established: Established Patient (seen at [facility] within 3 years) Reason for Visit:: OBC Seen by Clinical Staff ONLY (RN/MA): No Embedded Software Engineer Required: No Do You Feel Safe at Home: Yes Authorities Contacted: N/A PCP or OBGYN visit in last 3 months: Yes Date of Last PCP or OBGYN visit: 02/08/25 Hx Now: Yes Are you currently on any form of Control: No Pain Present Currently: No Pain Scale Used: Yen-De La Torre/Numerical Pain scale:: 0 Smoking Status Smoking Status: Never smoker 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: Past Medical History Past Medical History: No Hx Neurological Disorders, No Hx Cardiac Disorders, Yes Hx Hypertension (current ), No Hx Cancer, Yes Hx Anemia (self), No Hx Gastrointestinal Disorders, No Hx Renal Disease, No Hx Diabetes Mellitus Type 1 and Yes Hx Diabetes Mellitus Type 2 (paternal grandmother) Questionnaires Covid-19 Vaccine Questionnaire Has patient been vacinated for Covid-19 Have you been vacinated for Covid-19: Yes Social History Living Situation History Lives With: Family Housing: House Tobacco History Smoking Status: Never smoker Second Hand Smoke Exposure: No Alcohol History Alcohol Intake: Never Domestic Abuse History Do You Feel Safe at Home: Yes EPDS - PP Depression Screening [place] Pospartum Depression Screen I have been able to laugh and see the funny side of things: (0) As much as I always could I have looked forward with enjoyment to things: (0) As much as I ever did I have blamed myself unnecessarily when things went wrong: (0) No, never I have been anxious or worried for no good reason: (0) No, not at all I have felt scared or panicky for no very good reason: (0) No, not at all Things have been getting on top of me: (0) No, I have been coping as well as ever I have been so unhappy that I have had difficulty sleeping: (0) No, not at all I have felt sad or miserable: (0) No, not at all I have been so unhappy that I have been crying: (0) No, never The thought of harming myself has occurred to me: (0) Never Total Score: EPDS Score: Referral is indicated for score of 9 or more, suicidal, or if provider believes patient is depressed regardless of score.: 0 EPDS completed yes Care OB Visit Log OB Flowsheet Initial Weight: Not Recorded Date <del>?</del> EGA Weight BP Alb Glu CTX Pres Fundal ht FHR Mov Dilation Station Effacement Hx Notes Visit Note 10/13/24 <del>?</del> 22w 1d 98.43 kg 135/91 absent unknown 22 145 active 24-year-old 1 para 0 with unknown dates. Patient had an ultrasound on September 14 and the ABHIJIT it stated she was 18 weeks and 3 days. This gave her EDC of February 17, 2025. Patient complains of increased nausea and vomiting that she says is improving. But she is tearful because she is not feeling the baby move and she is worried about that. Denies social habits. And patient denies any surgeries. Patient has a history of anxiety. Reports an alert allergy to penicillin. Patient denies leaking fluid or bleeding. OB panel and NIPT and carrier screens ordered today. I will schedule ultrasound with maternal- medicine for anatomy scan. I reassured patient and discussed dates. Discussed comfort measures for nausea and vomiting. Patient is to continue to take her vitamins. And we discussed signs symptoms of labor. And patient will return in 3 weeks for OB check 11/17/24 <del>?</del> 27w 1d 100.698 kg 139/96 absent unknown 26 145 active No oB complaints, no leaking or bleeding, labs were not done. MFM pending redraw OB panel, nipt/carrier and 3rd tri lab, RHOGAM NV if needed, MFM scheduled, discuss ptl precaution, hydrate. continue PNV, PTL precaution. rtc 4 week 12/16/24 <del>?</del> 31w 2d active I called patient to discuss positive chlamydia results. Patient is tearful during appointment. Reports anxiety is elevated. Patient thinks her anxiety is elevated because father the baby is not bringing her to her visit today. Discussed positive chlamydia results with patient. Discussed safe sex practices. And I discussed transmission with. Patient. I gave the partner treatment pack of azithromycin 1 g to be taken today. Patient is allergic to penicillins so I gave her erythromycin 500 mg p.o. 4 times daily x 7 days per CDC guidelines. No sex for at least 3 weeks. And then I advised to use condoms. I discussed the patient is Rh- and advised patient to come on Saturday for her RhoGAM. And she was given her NIPT and gender results. Discussed labor precautions and increase fluids. Discussed positive chlamydia results with patient. Discussed safe sex practices. And I discussed transmission with. Patient. I gave the partner treatment pack of azithromycin 1 g to be taken today. Patient is allergic to penicillins so I gave her erythromycin 500 mg p.o. 4 times daily x 7 days per CDC guidelines. No sex for at least 3 weeks. And then I advised to use condoms. I discussed the patient is Rh- and advised patient to come on Saturday for her RhoGAM. And she was given her NIPT and gender results. Discussed labor precautions and increase fluids.. called patient to come draw 3 hr gtt 12/28/24 <del>?</del> 33w 0d 106.254 kg 136/86 absent unknown 32 145 active Patient for OB I. Patient has been noncompliant with care. She has limited access to transportation. Patient is tearful. She states her boyfriend is in a mental hospital. Patient is living with his father. Patient has limited support. Patient reports that her family lives in [place]. Patient did state that she feels safe living where she is at. Patient declined referral to [facility]. She states she has no way to get there. She also states that even though she has a history of depression and anxiety she has not taken medication in over 5 years. And she does not get counseling. Patient did not take her erythromycin for positive chlamydia. She states her boyfriend threw them away because the medicine would hurt the baby. Patient does state that she has not had sex since partner was treated. [facility] appointment 12/31 RhoGAM today. I advised patient to get her 3-hour GTT. I also talked with patient about seeing the [facility] and [facility]. Patient has not motivated to get help she feels that she is doing well. She also is having transportation problems and difficulty even getting around town. Maternal- medicine appointment on the . Discussed kick count and labor precautions. RhoGAM today. I advised patient to get her 3-hour GTT. I also talked with patient about seeing the [facility] and [facility]. Patient has not motivated to get help she feels that she is doing well. She also is having transportation problems and difficulty even getting around town. Maternal- medicine appointment on the . Discussed kick count and labor precautions. refill eryhthromycin 500 BID x 7, no sex, discuss compliance,. Discussed safe sex. Discussed importance of taking all erythromycin 500 twice daily x 7 days. Test of cure in 4 weeks. RhoGAM today. I advised patient to get her 3-hour GTT. I also talked with patient about seeing [facility] Patient has not motivated to get help she feels that she is doing well. She also is having transportation problems and difficulty even getting around town. Maternal- medicine appointment on the . Discussed kick count and labor precautions. refill eryhthromycin 500 TID x 7, no sex, discuss compliance,. Discussed safe sex. Discussed importance of taking all erythromycin 500 twice daily x 7 days. Test of cure in 4 weeks. ABHIJIT Calculator Estimated Delivery Date Method Current WG Current Estimate 02/15/25 Ultrasound #1 41w 1d Other Estimates 02/04/25 LMP (Uncertain) 42w 5d 02/15/25 Ultrasound #2 41w 1d Notes Visit Date: 12/28/24 Last Updated by: Cherie Conti CNM 12/28: RHOGAM given today Visit Date: 12/16/24 Last Updated by: Cherie Conti CNM 24yo . O-,ABS-. Patient Needs Rhogam at 28 week. rub NI, rpr;;nr, GC-/CT+. HBSAG-,HIV-,HC- Visit Date: 10/13/24 Last Updated by: Cherie Conti CNM 24 yo . sono: 09/17/24: 18w3. EDC 02/17/25 HPI Interval History: 24-year-old 1 para 1 for 2-week . Patient had a vaginal February 06, 2025. A baby girl that she delivered at 38 weeks. The baby weighed 6 pounds 2.1 ounces. Patient was induced because her blood pressures were high. And on admission she was given hydralazine IV push and also started on mag sulfate. Patient was then discharged home with blood pressures in the moderate range 140s by 90s. Patient was discharged home with labetalol 200 p.o. 3 times daily. Patient denies headache, blurred vision, epigastric pain. She is bottlefeeding. The father the baby's involved. The patient and her partner live with her partner's father. They have limited support. Patient reports that she is helping to take care of the baby. Changing diapers and feeding. She is attentive to the baby. Denies any complaints of pain. Patient feels that she is depressed at times and tired. Patient would like the Depo shot for control. Was or delivery considered high risk: Yes Delivery type: vaginal Was labor induced: yes (preeclampsia, severe range) and medically indicated Gestational age at delivery (weeks): 38 Delivery date: 02/06/25 Delivering provider: adam Delivery complications: No Is patient infant: No Is patient sexually active: No Contraception planned: depo Review of Systems Review of Systems ROS limited to current 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 complaints: Yes Exam Narrative Physical exam: Normal heart rate and rhythm. Lungs clear no wheezes. Abdomen is soft nontender. Uterus well involuted. Perineum is intact no lacerations. No swelling. Small lochia. Negative Homans' sign. 2+ DTRs. No edema no swelling. Breasts are soft General Limitations: no limitations General Appearance: alert, in no apparent distress, comfortable, cooperative, healthy appearing, well developed and well groomed Head Head exam: atraumatic, normocephalic and normal inspection Neck Neck exam: Present normal inspection, full ROM and trachea midline Chest Chest inspection: Present normal inspection and symmetric chest wall rise Resp Respiratory exam: Present normal lung sounds bilaterally Card Cardiovascular exam: Present regular rate, normal rhythm and normal heart sounds Abdominal Abdominal exam: Present soft and normal bowel sounds Extremities Extremities exam: Present normal inspection and full ROM Psych Psychiatric exam: Present normal affect and normal mood Office Procedures [facility] Clinic LOC & Office Proc's Nursing/Assessment Patient Status: Established Patient OB Clinic Nursing Assessment: Medication Reconciliation, Update PMH in EMR and Vital Signs OB Clinic Coordination of Care: Consent,records obtained, informed consent, Education Simp Pt/Fam, Lab and Imaging orders, Results/Orders obtained and Staff clarify orders Established Patient Charge Established Patient Point Assignment: 80 Established Patient Point Charge: EP Level 3 (80-115) Assessment & Plan Diagnosis / Problem List (1) care following vaginal delivery: Status: Acute (2) Gestational [-induced] hypertension without significant proteinuria, complicating childbirth: Status: Acute Plan Consult with OB regarding patient's blood pressures today. Patient will continue the labetalol 200 mg 3 times daily and then will start Procardia 30 mg XL daily. She is to return in a week with OB for BP check and to check effectiveness of the medication. I advised patient to make an appointment with her primary care at [facility] for depression. She is to continue her vitamins. We talked about safety and use of a car seat. I discussed with her danger signs symptoms and worsening signs of PIH/chronic hypertension. Increase rest. Increase fluids. Care Reviewed delivery summary and any complications: Yes Uterus involuted to: 3 below umb Perineal / incision healing noted: Yes Screened for depression: Yes Depression counseling provided: Yes Discussed family planning & contraception: Yes Contraception planned: depo Counseling on safe resumption of sexual activity: Yes Counseling on gradual excercise: Yes Discussed and concerns (describe), provided support: Yes Referred to weight reduction specialist: No Counseled on good nutrition, hydration, and self care: No Reviewed vaccine status: No Chronic & current problems reconciled on problem list: Yes Additional follow up plans: f/u at [facility] for depression, [facility] will not accept patient due to her insurance care discussed; questions answered: feeding and other (safety) Follow up: routine/prn Additional counseling & anticipatory guidance provided: Discussed wound care. No sex. Continue labetalol 200 3 times daily. Start Procardia 30 mg XL tonight. Discussed signs symptoms of preeclampsia and worsening signs and ER precautions. Lots of fluids. Follow-up [facility] for depression. Return in a week with OB to monitor hypertensive meds and effectiveness. Patient elects to have Depo
== END 2025-02-23 15:34 | disposition home or self-care (01) ==
LOC: HODSOBC 14:29
PROVIDERS: Supervising Provider Advanced Practice Midwife; Visit Provider Advanced Practice Midwife
DX: Z39.2 Encounter for routine postpartum follow-up (principal); O13.5 Gestational [pregnancy-induced] hypertension without significant proteinuria, complicating the puerperium
CPT/HCPCS: 99213; G0463